=== PATIENT | female | born 1940 | race Caucasian/White ===

== ENCOUNTER → 2024-07-16 07:25 | Outpatient (REF) | payer OTHER, SELFPAY | LOC: EMG 07:25 | PROVIDERS: ATTENDING PHYSICIAN Physician Assistant Medical | DX: R20.2 Paresthesia of skin (principal) | CPT/HCPCS: 95886; 95909 ==

== ENCOUNTER 2025-02-05 18:35 | Inpatient (IN) | payer OTHER, SELFPAY ==
[2025-02-04 12:50] VITALS: BP 123/93
[2025-02-04 13:07] LABS: Hematocrit 35.4 % (37.0-47.0); Hemoglobin 11.4 g/dL (12.0-16.0); Mean Corp Hgb Conc. 32.2 g/dL (33.0-37.0); Mean Corpuscular Volume 95.7 fL (81.0-99.0); Nucleated Red Blood Cells % 0 %; Platelet Count 219 10^3/uL (130-400); Red Cell Dist. Width 12.7 % (11.5-14.5)
[2025-02-04 13:27] LABS: ALT (SGPT) 14 U/L (0-35); AST (SGOT) 20 U/L (14-36); Albumin 4.9 g/dl (3.5-5.0); Alkaline Phosphatase 78 U/L (38-126); Blood Urea Nitrogen 33 mg/dl (7-17); Calcium 11.6 mg/dl (8.4-10.2); Carbon Dioxide 23 mmol/L (22-30); Chloride 110 mmol/L (98-107); Glucose 110 mg/dl (70-99); Potassium 5.4 mmol/L (3.5-5.1); Sodium 139 mmol/L (135-145); Total Protein 7.4 g/dl (6.3-8.2); eGFR 56.25
--- NOTE | 2025-02-04 17:36 | ED.GENMED ---
History of Present Illness
<Karson Syed DO - Last Filed: 02/04/25 17:36>
General
Chief Complaint: Numbness
Time Seen by Provider: 02/04/25 16:55
<Toño Bueno PA-C - Last Filed: 02/04/25 22:50>
General
Source: patient
History of Present Illness
History of Present Illness:
84-year-old female with past medical history of hypertension and hyperlipidemia presenting to the emergency department for evaluation with her daughter after patient had been complaining of right lower extremity, right upper extremity and left thigh
complications over the last 6 months. Patient states that 6 months ago was when the right leg weakness started and has gradually gotten worse, about 1 month ago she started noticing numbness and weakness right upper extremity and states left eye
vision changes (unable to describe the visual disturbance) which started 1 month ago as well. Patient states that the symptoms will usually occur every single day, sometimes multiple times per day and usually last up to 5 minutes resolving
spontaneously. Currently patient states that her right arm feels 'abnormal' and that she has the same sensation in her right leg but notes she is still able to move these affected extremities. She denies any headaches, chest pain or shortness of
breath, abdominal pain, nausea, vomiting, fevers or infectious symptoms.
Past History
<Karson Syed DO - Last Filed: 02/04/25 17:36>
Past History
ED Past Medical History: HTN and Hypercholesterolemia
Social History
Tobacco: Non-smoker
Personal:
Living: with family
Employment: Retired
<Toño Bueno PA-C - Last Filed: 02/04/25 22:50>
Social History
Alcohol: None
Drug: None
Review of Systems
<Toño Bueno PA-C - Last Filed: 02/04/25 22:50>
Review of Systems
All Other Systems: ROS reviewed and negative except as documented in HPI and ROS
Phy Exam
<Toño Bueno PA-C - Last Filed: 02/04/25 22:50>
Physical Exam
Physical Exam:
GENERAL: Alert , in no apparent distress
HEAD: Normocephalic atraumatic
EYE: pupils equal and reactive, EOMI, no nystagmus, no gross visual disturbances
NECK: Supple
ENT: o/p clr, mmm.
CARDIAC: Regular rate and rhythm .
LUNGS: Clear breath sounds bilaterally, no acute respiratory distress, no wheezes/rales/rhonchi
ABDOMEN: Soft, without focal tenderness, no r/g, no cvat
NEUROLOGICAL: Alert and oriented, no focal neuro deficits, moving all extremities, no sensory deficits appreciated
SKIN: Warm and dry, skin intact.
MUSCULOSKELETAL: No edema, well perfused.
PSYCH: Normal and appropriate interaction.
Scores
<Toño Bueno PA-C - Last Filed: 02/04/25 22:50>
NIH Stroke Score
Level of Consciousness: 0 - Alert
LOC Questions: 0-Answers both correctly
LOC Commands: 0-Performs both correctly
Best Horizontal Gaze: 0-Normal
Visual Gentile: 0=Normal, no visual loss
Facial Palsy: 0=Normal, symmetrical
Motor - Right Arm: 0=No drift 10 seconds
Motor - Left Arm: 0=No drift 10 seconds
Motor - Right Le-No drift 5 seconds
Motor - Left Le-No drift 5 seconds
Limb Ataxia: 0-Absent
Sensation: 0-Normal
Best Language: 0-No aphasia
Dysarthria: 0-Normal
Extinction and Inattention: 0-No abnormality
NIH Total Score:: 0
Heart Failure Risk
Heart Failure Risk Score: Not Applicable
Heart Score for Chest Pain Patients
STEMI patient?: Not applicable
Withdrawal Assessment of Alcohol
Withdrawal Assessment Completed?: Not applicable
Course
<Karson Syed, DO - Last Filed: 02/04/25 17:36>
Orders/Labs/Results
Orders:
Orders
02/04/25 12:53
CT Head W/o Iv Contrast Urgent
Comment:
Reason For Exam: L arm, foot, leg, facial,eye numbness intermittent
02/04/25 12:56
Electrocardiogram (*1) Urgent
Reason for Study: Other
Other Reason for Exam: numbness
EKG- Treatment ONCE
02/04/25 12:57
Complete Blood Count/With Diff Urgent
Comprehensive Metabolic Panel Urgent
02/04/25 17:20
0.9% Sodium Chloride 1000 ml [Nss] 1,000 ml IV BOLUS
02/04/25 17:49
Aspirin 325 mg PO NOW STA
02/04/25 18:06
Ehrlichia/Anaplasma by PCR [S] Urgent
Lyme Progressive Urgent
Parathyroid Hormone [Intact PTH Includes Calcium] Urgent
Thyroid Stimulating Hormone to Reflex [TSH Reflex To Free T4] Urgent
Vitamin D, 25-OH Urgent
Blood Parasites Urgent
JULIO Source: Blood/Venous
Specimen Description:
02/04/25 18:41
Admit/Transfer Patient As Directed
Co-Sign Provider:
Level of Care: Observation services
Assign to:: Telemetry
Physician / Group: Ariela Perez
Diagnosis: right upper and lower extremity numbness
Reason for Telemetry: CVA/TIA
Date to Stop Telemetry: 02/07/25
Time to Stop Telemetry: 11:00
02/04/25 18:42
Code Status As Directed
Resuscitation Status: Full Code
02/04/25 20:42
Acetaminophen [Tylenol] 650 mg PO Q4HPRN PRN
Carvedilol [Coreg] 3.125 mg PO BID
02/04/25 20:42
Case Management Consult ONCE
Case Management Consult: Discharge Planning
Comment: stroke/tia
DIETARY IP CONSULT Routine
Reason for Consult: stroke/TIA
NEUROLOGY CONSULT Urgent
Consulting Provider: Madan Sanderson
Was physician already notified: Yes
Web Production Designer Urgent
MR Brain Without Contrast Routine
Comment:
Reason For Exam: stroke/TIA
Recent pill cam endoscopy?: No
Activity As Directed
Activity Level: As Tolerated
NIH Stroke Scale As Directed
Directions: Per protocol
Comment: every shift and with any change in condition or mental status
Neurological Checks As Directed
Frequency: q4h
Additional Instructions:: q4h x 24h upon admission to the floor, then qshift & with any change in condition
and mental status
Patient Education As Directed
Type: Stroke education packet
Comment: provide to patient and family
Pneumatic Compression Sleeves As Directed
Type: Knee high
Swallow Screening CVA/TIA ONLY As Directed
Comment: NPO until swallowing screening completed
If patient FAILS swallow screening:: NPO, Speech Therapy consult, Aspiration Precautions
If patient PASSES swallow screening, diet:: Regular
Vital Signs As Directed
Frequency: Per unit guidelines
Ot Eval And Treat Routine
Pt Eval And Treat Routine
Activity Level: As Tolerated
Speech Therapy Eval & Treat Routine
DX Deep Vein Thrombosis Video Routine
02/04/25 22:00
Amlodipine [Norvasc] 2.5 mg PO HS
Rosuvastatin Calcium [Crestor] 5 mg PO HS
02/05/25 06:00
Basic Metabolic Panel IN AM
Cardiovascular Evaluation IN AM
Complete Blood Count/No Diff IN AM
02/05/25 08:00
Aspirin Chewable [Low Strength Aspirin] 81 mg PO DAILY
02/05/25 18:00
Ezetimibe [Zetia] 10 mg PO QPM
02/07/25 11:00
DC Protocol for Telemetry ONCE
Abnormal Lab Results
02/04/25 02/04/25
12:57 18:06
RBC 3.70 L 10^6/uL
(4.20-5.40)
Hgb 11.4 L g/dL
(12.0-16.0)
Hct 35.4 L %
(37.0-47.0)
MCHC 32.2 L g/dL
(33.0-37.0)
MPV 11.3 H fL
(7.4-10.4)
Potassium 5.4 H mmol/L
(3.5-5.1)
Chloride 110 H mmol/L
(98-107)
BUN 33 H mg/dl
(7-17)
Glucose 110 H mg/dl
(70-99)
Calcium 11.6 H mg/dl 11.7 H mg/dl
(8.4-10.2) (8.4-10.2)
02/04/25 12:57
02/04/25 12:57
Vital Signs
Initial and Last Documented VS:
Initial Vital Signs
Temp Pulse Resp BP Pulse Ox
98.7 F 74 16 123/93 97
02/04/25 12:50 02/04/25 12:50 02/04/25 12:50 02/04/25 12:50 02/04/25 12:50
Last Documented Vital Signs
Temp Pulse Resp BP Pulse Ox
98.1 F 69 18 152/61 97
02/04/25 21:00 02/04/25 21:58 02/04/25 21:00 02/04/25 21:58 02/04/25 21:00
<Toño Bueno PA-C - Last Filed: 02/04/25 22:50>
Orders/Labs/Results
Orders:
Orders
02/04/25 12:53
CT Head W/o Iv Contrast Urgent
Comment:
Reason For Exam: L arm, foot, leg, facial,eye numbness intermittent
02/04/25 12:56
Electrocardiogram (*1) Urgent
Reason for Study: Other
Other Reason for Exam: numbness
EKG- Treatment ONCE
02/04/25 12:57
Complete Blood Count/With Diff Urgent
Comprehensive Metabolic Panel Urgent
02/04/25 17:20
0.9% Sodium Chloride 1000 ml [Nss] 1,000 ml IV BOLUS
02/04/25 17:49
Aspirin 325 mg PO NOW STA
02/04/25 18:06
Ehrlichia/Anaplasma by PCR [S] Urgent
Lyme Progressive Urgent
Parathyroid Hormone [Intact PTH Includes Calcium] Urgent
Thyroid Stimulating Hormone to Reflex [TSH Reflex To Free T4] Urgent
Vitamin D, 25-OH Urgent
Blood Parasites Urgent
JULIO Source: Blood/Venous
Specimen Description:
02/04/25 18:41
Admit/Transfer Patient As Directed
Co-Sign Provider:
Level of Care: Observation services
Assign to:: Telemetry
Physician / Group: Ariela Perez
Diagnosis: right upper and lower extremity numbness
Reason for Telemetry: CVA/TIA
Date to Stop Telemetry: 02/07/25
Time to Stop Telemetry: 11:00
02/04/25 18:42
Code Status As Directed
Resuscitation Status: Full Code
02/04/25 20:42
Acetaminophen [Tylenol] 650 mg PO Q4HPRN PRN
Carvedilol [Coreg] 3.125 mg PO BID
02/04/25 20:42
Case Management Consult ONCE
Case Management Consult: Discharge Planning
Comment: stroke/tia
DIETARY IP CONSULT Routine
Reason for Consult: stroke/TIA
NEUROLOGY CONSULT Urgent
Consulting Provider: Madan Sanderson
Was physician already notified: Yes
Web Production Designer Urgent
MR Brain Without Contrast Routine
Comment:
Reason For Exam: stroke/TIA
Recent pill cam endoscopy?: No
Activity As Directed
Activity Level: As Tolerated
NIH Stroke Scale As Directed
Directions: Per protocol
Comment: every shift and with any change in condition or mental status
Neurological Checks As Directed
Frequency: q4h
Additional Instructions:: q4h x 24h upon admission to the floor, then qshift & with any change in condition
and mental status
Patient Education As Directed
Type: Stroke education packet
Comment: provide to patient and family
Pneumatic Compression Sleeves As Directed
Type: Knee high
Swallow Screening CVA/TIA ONLY As Directed
Comment: NPO until swallowing screening completed
If patient FAILS swallow screening:: NPO, Speech Therapy consult, Aspiration Precautions
If patient PASSES swallow screening, diet:: Regular
Vital Signs As Directed
Frequency: Per unit guidelines
Ot Eval And Treat Routine
Pt Eval And Treat Routine
Activity Level: As Tolerated
Speech Therapy Eval & Treat Routine
DX Deep Vein Thrombosis Video Routine
02/04/25 22:00
Amlodipine [Norvasc] 2.5 mg PO HS
Rosuvastatin Calcium [Crestor] 5 mg PO HS
02/05/25 06:00
Basic Metabolic Panel IN AM
Cardiovascular Evaluation IN AM
Complete Blood Count/No Diff IN AM
02/05/25 08:00
Aspirin Chewable [Low Strength Aspirin] 81 mg PO DAILY
02/05/25 18:00
Ezetimibe [Zetia] 10 mg PO QPM
02/07/25 11:00
DC Protocol for Telemetry ONCE
Abnormal Lab Results
02/04/25 02/04/25
12:57 18:06
RBC 3.70 L 10^6/uL
(4.20-5.40)
Hgb 11.4 L g/dL
(12.0-16.0)
Hct 35.4 L %
(37.0-47.0)
MCHC 32.2 L g/dL
(33.0-37.0)
MPV 11.3 H fL
(7.4-10.4)
Potassium 5.4 H mmol/L
(3.5-5.1)
Chloride 110 H mmol/L
(98-107)
BUN 33 H mg/dl
(7-17)
Glucose 110 H mg/dl
(70-99)
Calcium 11.6 H mg/dl 11.7 H mg/dl
(8.4-10.2) (8.4-10.2)
02/04/25 12:57
02/04/25 12:57
Vital Signs
Initial and Last Documented VS:
Initial Vital Signs
Temp Pulse Resp BP Pulse Ox
98.7 F 74 16 123/93 97
02/04/25 12:50 02/04/25 12:50 02/04/25 12:50 02/04/25 12:50 02/04/25 12:50
Last Documented Vital Signs
Temp Pulse Resp BP Pulse Ox
98.1 F 69 18 152/61 97
02/04/25 21:00 02/04/25 21:58 02/04/25 21:00 02/04/25 21:58 02/04/25 21:00
<Toño Bueno PA-C - Last Filed: 02/04/25 22:50>
MDM/Problems Addressed
Differential Diagnosis Includes:
TIA/CVA
Seizure
ICH
Mass/Malignancy
GCA
Electrolyte imbalance
Hypertensive urgency
Less concern for infectious etiology given chronicity of symptoms
MDM/Problems Addressed:
84-year-old female presenting to the emergency department for evaluation of right upper extremity weakness, left eye visual disturbance, symptoms ongoing for around 6 months, gradually worsening over the last month or so. No stroke alert was called
given the chronicity of symptoms. Patient is not a TNK candidate nor a IAT candidate. Patient is hemodynamically stable and in no acute distress. No focal neurologic findings on my exam. Chemistry shows slight hyperkalemia and hypercalcemia,
hypercalcemia could be contributing to some of the patient's symptoms. Head CT was noted for moderate microvascular ischemia. Question intermittent TIA versus CVA. Will treat here with 325 of aspirin. Given the unclear etiology for patient's
symptoms will admit for further workup.
Chronic conditions affecting care: HTN
<Karson Syed DO - Last Filed: 02/04/25 17:36>
*Pulse Oximetry
SaO2: 97
Oxygen Mode of Delivery: Room air
<Toño Bueno PA-C - Last Filed: 02/04/25 22:50>
*Radiology
Radiology exam reviewed: radiology read reviewed
*Pulse Oximetry
Patient hypoxic: no
*EKG
Heart Rate: 67
Rate: normal
Rhythm: sinus
Ischemia: no ischemia
*Court Operations Clerk Interpretation
Rate: normal
Heart Rate: 70
Rhythm: sinus
*Critical Care Note
Total Time (30-74mins, 75-104mins- exclusive of procedures): Not Applicable
Data Reviewed
Review of Other/Old Records Reveals: Labs and Records
Source: patient
<Toño Bueno PA-C - Last Filed: 02/04/25 22:50>
Patient Management
Discussion with other providers: Hospitalist
Escalation/DeEscalation of care consider admission/obs:
Hospitalist team accepts for continued evaluation and treatment
ED Attending Note
<Karson Syed DO - Last Filed: 02/04/25 17:36>
ED Attending Note
Patient seen and examined by attending physician: Yes
I performed the substantive portion of visit, reviewed & personally made and approve the management plan that is documented in note by myself or SHELBY.: Yes
-
Portions of this chart may have been created with voice recognition software.� Occasional wrong word or��sound alike� substitutions may have occurred due to the inherent limitations of voice recognition software.
Discharge Plan
Departure
Patient Disposition: Admit
Date of Disposition: 02/04/25
Time of Disposition: 17:53
Presentation/result/management discussed w/ accepting MD/DO: Hospitalist
Discharge Problem:
Weakness, Hypercalcemia, Visual disturbance
Interventions
Interventions:
*Risk Screen - Suicide Last Done: 02/04/25 18:15
*General Assessment Last Done: 02/04/25 18:15
*Neglect/Abuse Screening Last Done: 02/04/25 18:15
*ED- Fall Risk Assessment Last Done: 02/04/25 18:15
*ED COVID-19 Vaccine History Last Done: 02/04/25 18:15
*Nursing Disposition Last Done: 02/04/25 20:49
ED- Neurological Assessment Last Done: 02/04/25 18:18
Discharge Date and Time
Discharge Date/Time: 02/04/25 20:50
--- NOTE | 2025-02-04 17:53 | HPS.HSE ---
Addendum entered and electronically signed by Ariela Perez MD 02/04/25 20:30:
This is an addendum to H&P written by Alice Luciano on 02/04/2025. �Patient seen and examined independent with FURNITURE RESTORER.
84-year-old female past medical history of hypertension, hyperlipidemia, prior herniated disc status post discectomy, lumbar radiculopathy, presenting with severe numbness and weakness of her right arm and right leg last night. �She has been having
the symptoms in the right leg for the past 6 months in the right arm for the past month. �Symptoms occur randomly and not associated with any back pain. �They resolve completely in between. �No headache. �She has also been having left eye cloudy
vision but denies any currently.
Vital signs unremarkable.
Labs show potassium 5.4. �Calcium 11.7.
Patient with intermittent right-sided numbness and weakness for several months left eye cloudiness. �Unclear etiology. �Chronicity does not suggest acute CVA. �Check MRI brain. �Neurology consulted.
Hyperkalemia secondary to lisinopril and spironolactone. �Hypercalcemia likely secondary to lisinopril. �Hold spironolactone and lisinopril. �Check PTH and vitamin D.
Original Note:
Family Physician
-
Family Physician: Valerie Beatty PA-C
Chief Complaint
-
numbness to RUE and RLE
History of Present Illness
Patient is a 84-year-old female with past medical history significant for hypertension and hypercholesterolemia who presented to [facility] ED for evaluation of numbness to right arm, right leg and right foot. Patient reports symptoms started last night
where she had right arm, right leg and right foot numbness that was associated with left eye cloudiness, and 'firework' like appearance. She states all night she was unable to move right arm into this morning. She states that symptoms this morning
slowly resolved slowly on their own. She denies any dizziness, fever, chills, cough, shortness of breath, chest pain, palpitations, nausea, vomiting, constipation, diarrhea or urinary symptoms.
Medical History
Past Medical History
Past Medical History: Reports Other
Additional Past Medical History:
hypertension
hypercholesterolemia
Past Surgical History: Reports Other
Additional Past Surgical History:
lumbar diskectomy
Social History
Tobacco: Former Smoker
Alcohol: None
Drug: None
Personal:
Living: With Family
Employment: Retired
Family History
Family History: Other (Father: CAD)
Allergies / Home Medications
Allergies reflects when Allergies were last updated in [employer].
Home Medications with original date entered in [employer]
Allergy/Medication List:
Allergies
Allergy/AdvReac Type Severity Reaction Status Date / Time
No Known Allergies Allergy Verified 02/04/25 12:52
Home Medications
lisinopril 20 mg tablet 20 mg PO DAILY Blood pressure 04/04/22
amlodipine 2.5 mg tablet (Norvasc) 2.5 mg PO HS 02/04/25
carvedilol 3.125 mg tablet (Coreg) 3.125 mg PO BID 02/04/25
ezetimibe 10 mg tablet (Zetia) 10 mg PO QPM 02/04/25
rosuvastatin 5 mg tablet (Crestor) 5 mg PO HS 02/04/25
spironolactone 25 mg tablet 25 mg PO BID 02/04/25
Review of Systems
-
History Source: Patient
Constitutional: Reports No Symptoms
EENT: Reports Other (cloudiness to left eye sight )
Respiratory: Reports No Symptoms
Cardiac: Reports No Symptoms
Abdomen/GI: Reports No Symptoms
: Reports No Symptoms
Musculoskeletal: Reports No Symptoms
Skin: Reports No Symptoms
Neurological: Reports Numbness (right arm, leg and foot )
Endocrine: Reports No Symptoms
Hematologic/Lymphatic: Reports No Symptoms
Psych: Reports No Symptoms
Physical Exam
Vital Signs
Vital Signs
Temp Pulse Resp BP Pulse Ox
98.7 F 74 16 123/93 97
02/04/25 12:50 02/04/25 12:50 02/04/25 12:50 02/04/25 12:50 02/04/25 17:36
Physical Exam
General: Well Developed, Well Nourished, No Apparent Distress, Comfortable and Conversant
HEENT: NormoCephalic, Moist mucous membranes and Atraumatic
Respiratory: Clear and Non Labored Respirations
Cardiac: S1/S2 and Regular Rhythm; No Murmur, Rub or Gallop
Breast: Deferred by me
GI: Soft, Non Tender, Non Distended and Normal Bowel Sounds; No Organomegaly
Rectal: Deferred by Provider
Genito-urinary: Deferred by me
Musculoskeletal: No Clubbing, No Cyanosis and No Edema
Skin: Warm and IV/Catheter Site
Neuro: Awake, AO x 3, Nonfocal/grossly intact, Cranial Nerves Intact (II-XII) and No Sensory Deficits; No Slurred Speech, Facial Droop, Tremors or Sedated
Hematologic/Lymphatic: No Lymphadenopathy
Psych: Calm and Intact Judgment/Insight
Laboratory Results
-
02/04/25 12:57
02/04/25 12:57
Laboratory Results
Total Bilirubin 0.5 mg/dl (0.2-1.3) 02/04/25 12:57
AST 20 U/L (14-36) 02/04/25 12:57
ALT 14 U/L (0-35) 02/04/25 12:57
Alkaline Phosphatase 78 U/L (38-126) 02/04/25 12:57
Data Reviewed
-
CT Scan: Report Reviewed by me (Head: No acute intracranial abnormality. Moderate microvascular ischemic disease.)
Medical Tests (Nuc Med, Echo, EKG etc): Report Reviewed by me (EKG: NORMAL SINUS RHYTHM)
Lab Data: Labs Reviewed by me (K+ 5.4, BUN 33, creat 1.0, eGFR 56.25, Ca + 11.6)
Impression/Plan
-
IMPRESSION/PLAN:
#numbness to right arm, leg and foot 2/2 CVA/TIA vs. electrolyte abnormalities
K+ 5.4, BUN 33, creat 1.0, eGFR 56.25, Ca + 11.6
EKG: NORMAL SINUS RHYTHM
Head CT: No acute intracranial abnormality.
Moderate microvascular ischemic disease.
- Admit to telemetry
- Consult Neurology
- start aspirin
- trend BMP
- MRI in AM
#hypertension
- continue amlodipine and carvedilol
- Hold lisinopril and spironolactone
#hypercholesterolemia
- continue ezetimibe and rosuvastatin
Code status: full code
DVT prophylaxis: SCDs
[2025-02-04 18:00] VITALS: BP 142/71
[2025-02-04] MEDS: NSS 1000 IV (18:11)
[2025-02-04] MEDS: ASPIRIN 325 MG PO (18:11)
[2025-02-04 18:14] VITALS: BMI 26.1
[2025-02-04 18:28] LABS: Calcium 11.7 mg/dl (8.4-10.2)
[2025-02-04 18:48] LABS: Vitamin D, 25-OH*** 48.5 ng/mL (30-80)
[2025-02-04 19:00] VITALS: BP 143/55
[2025-02-04 20:00] VITALS: BP 109/60
[2025-02-04 21:00] VITALS: BP 152/61; BMI 25.8
[2025-02-04] MEDS: NORVASC 2.5 MG PO (21:57)
[2025-02-04] MEDS: COREG 3.125 MG PO (21:58)
[2025-02-04] MEDS: CRESTOR 5 MG PO (21:58)
[2025-02-04 23:52] VITALS: BP 117/55
[2025-02-05] VITALS (8 sets, daily range): BP systolic 102–164; BP diastolic 52–71; PULSE 66–70; O2SAT 99
--- NOTE | 2025-02-05 02:49 | PTCARENOTE ---
pt received from Delfina able to make his needs known.Denies pain.OOB with 1 person assist.Plan of care continued on pt.Pt oriented to room & call joshi in reach.Stroke packet provided to pt.
--- NOTE | 2025-02-05 07:32 | W.PN.HOSP.TC ---
Today's Communication/Plan
-
For work up of possible CVA and Hyperparathyroidism
Assessment / Plan
Assessment / Plan
#Right sided numbness and weakness
-CVA/TIA
-Head CT 02/04/2025 No acute intracranial abnormality.
Moderate microvascular ischemic disease.
-Brain MRI 02/04/2025
-There are multiple foci of restricted diffusion involving the left frontal, parietal and occipital lobes consistent with acute infarctions. There is a decreased flow void involving the M1 segment the left MCA which may represent narrowing. Further
evaluation with dedicated CTA may be considered as clinically warranted.
Moderate atrophy with sequelae of moderate/severe chronic small vessel ischemic disease
-Consult Neurology
-Do CTA/Carotid USS/ Echo
-Electrolyte anomalies
K+ 5.4, BUN 33, creat 1.0,
Primary Hyperparathyroidism
-Elevated Ca 11.2, PTH 130, N Vit D 48.5
-Albumin is low 3.4
-Check Mg
#hypertension
- continue amlodipine and carvedilol
- Lisinopril and spironolactone on hold
- Monitor bp
#hypercholesterolemia
- continue ezetimibe and rosuvast
Anticipated Discharge: > 48 hours
Subjective/Interval History
-
Date of Service: February 05, 2025
An 84-year-old female who presented 2 days ago on account of numbness and weakness of her right arm and right leg 2 nights ago. She has been having the symptoms in the right leg for the past 6 months in the right arm for the past month. She doesn't
recall any precipitating factors. She also developed vision changes in the left eye in the last month described as being cloudy, and like 'firework'.
Symptoms at evaluation was resolved
Objective Data
-
Labs:
Laboratory Results
02/05/25
06:23
WBC Pending
Hgb Pending
Hct Pending
Plt Count Pending
Sodium Pending
Potassium Pending
Chloride Pending
Carbon Dioxide Pending
BUN Pending
Creatinine Pending
Glucose Pending
Calcium Pending
Vital Signs:
Vital Signs
Temp Pulse Resp BP Pulse Ox
97.8 F 62 15 109/53 97
02/05/25 03:51 02/05/25 03:51 02/05/25 03:51 02/05/25 03:51 02/05/25 03:51
I&O
02/04/25 02/05/25 02/06/25
06:59 06:59 06:59
Intake Total 0 / 0
Balance 0 / 0
Review of Systems
-
History Source: Patient
Constitutional: Reports No Symptoms
EENT: Reports No Symptoms Reported
Respiratory: Reports No Symptoms
Cardiac: Reports No Symptoms
Abdomen/GI: Reports No Symptoms
Musculoskeletal: Reports No Symptoms
Neuro: Reports Ataxia
Physical Exam
-
General: Well Developed, Well Nourished and No Apparent Distress
Respiratory: Clear to Auscultation; Negative Wheezes or Rhonchi
Cardiac: Regular Rhythm and S1/S2; Negative Murmur
GI: Soft, Nontender, Nondistended and Normal Bowel Sounds
Musculoskeletal: No Clubbing, No Cyanosis and No Edema
Neuro: Awake and Other (Motor and sensory function grossly intact. left eye palsy noted)
Data Reviewed
-
Labs: Labs Reviewed by me, Discussed with Physician and Discussed with Patient
[2025-02-05] MEDS: COREG 3.125 MG PO ×2 (07:51→19:51)
[2025-02-05] MEDS: LOW STRENGTH ASPIRIN 81 MG PO (07:51)
[2025-02-05 07:54] LABS: Hematocrit 32.6 % (37.0-47.0); Hemoglobin 10.3 g/dL (12.0-16.0); Mean Corp Hgb Conc. 31.6 g/dL (33.0-37.0); Mean Corpuscular Volume 95.0 fL (81.0-99.0); Platelet Count 191 10^3/uL (130-400); Red Cell Dist. Width 12.4 % (11.5-14.5)
[2025-02-05 08:17] LABS: Blood Urea Nitrogen 26 mg/dl (7-17); Calcium 11.0 mg/dl (8.4-10.2); Carbon Dioxide 21 mmol/L (22-30); Chloride 113 mmol/L (98-107); Estimated Creatinine Clearance 42 ml/min; Glucose 88 mg/dl (70-99); HDL Cholesterol 44 mg/dl; LDL Cholesterol, Calculated 43 mg/dl; Potassium 4.6 mmol/L (3.5-5.1); Sodium 141 mmol/L (135-145); Very Low Density Lipoprotein 25 mg/dl (0-30); eGFR > 60.00
--- NOTE | 2025-02-05 08:49 | W.PN.UPDATE ---
Update Note
Progress Note Update
Seen and examined the patient with resident. Agree with plan except for changes in my documentation
84-year-old female with numbness and weakness of the right arm and right leg. Patient had intermittent right-sided numbness and weakness for several months and left eye cloudiness.
Patient awake alert oriented
Cardiovascular system S1-S2 appreciated
Numbness of the right arm and leg
No facial droop,
Good motor strength
MRI brain-multiple foci of restricted diffusion involving left frontal, parietal, occipital lobes with acute infarctions. Decreased flow in the M1 segment of left MCA. Moderate atrophy with Seikaly of moderate to severe chronic small vessel
ischemic changes.
# Numbness of the right arm and leg with left eye cloudiness
Neurological versus other reasons
MRI of the brain with multiple areas of CVA
Check CTA of the head and neck
Check echo
Neurology evaluation
Neurochecks and NIH scale
# Hyperkalemia-improved
# Hypercalcemia- Looks like primary hyperparathyroidism. IVF.
# Hypertension-continue amlodipine and carvedilol. Hold lisinopril and spironolactone
# Hyperlipidemia-continue Zetia and statin. Increase Crestor to 10 mg
# DVT prophylaxis-Lovenox
# Full code
Spoke to daughter and updated
Part of this note was created using voice recognition system. Occasional wrong word or��sound alike� substitutions may have inadvertently occurred due to the inherent limitations of voice recognition software. If noted kindly bring it to my
attention for correction.
[2025-02-05 09:56] LABS: C-Reactive Protein < 5.00 mg/L (0.0-10.00)
[2025-02-05 10:05] LABS: Troponin I 0.024 ng/ml
[2025-02-05 10:45] LABS: Vitamin B12 286 pg/ml (239-931)
[2025-02-05 12:17] LABS: Urine Character Clear (Clear)
[2025-02-05 13:53] LABS: Lyme Antibody Screen, EIA Negative (Negative)
[2025-02-05 14:15] LABS: Urine Red Blood Cell 0-2 /HPF (0-2)
--- NOTE | 2025-02-05 15:33 | CM ---
Met with patient to obtain information for assessment. Patient stated that she lives with her spouse with her daughter nearby in a one story home with 13 steps to enter. Patient described herself as independent with all of her ADLs, personal care,
dressing and bathing. 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 Patient can drive and do all of her own shopping and get herself to her appointments. She has no DME. She has not had VN. She has never been to a SNF.
Patient has a prescription plan and uses, [facility] for all of her medications.
Patient's PCP is Caryl Beatty.
OBS letter, status reviewed, signed and on chart.
Plan: Case management will continue to follow and assist with discharge planning. Most likely no needs. Family will tranport home.
[2025-02-05] MEDS: NSS 1000 IV (16:39)
[2025-02-05] MEDS: ZETIA 10 MG PO (16:43)
[2025-02-05] MEDS: LOVENOX 40 MG SC (16:43)
--- NOTE | 2025-02-05 19:46 | CON.NEURO ---
Neuro Assessment/Plan
Assessment
Head CT imgs rev'd,
brain MRI imgs rev'd, several infarcts in L MCA territory. Report also mentioning decreased L M1 flow, proved to be spurious on CTA
CTA h/n img's and rept rev'd b/l carotid bifurcation atherosclerosis, suggestion of hemodynamically significant stenosis bulbs and proximal ICA bilaterally
HDL 44, LDL 43
stroke, suspect symptomatic carotid on the left, will check ultrasound and speak with vascular surgery tomorrow morning.
however Left MCA is also a good territory for cardio emboli
medical management for now, large vessel aterosclerosis = ASA 324 lifelong, 90 days of plavix, and high dose statin such as rosuvastatin 20 despite good lipid numbers.
Consultation
Order
Date of Consultation: 02/05/25
Requesting Provider: Gricelda
Reason for Consult: stroke
Subjective/Objective
Subjective Data
Date of Service: February 05, 2025
from h&p:
Patient is a 84-year-old female with past medical history significant for hypertension and hypercholesterolemia who presented to [facility] ED for evaluation of numbness to right arm, right leg and right foot. Patient reports symptoms started last night
where she had right arm, right leg and right foot numbness that was associated with left eye cloudiness, and 'firework' like appearance. She states all night she was unable to move right arm into this morning. She states that symptoms this morning
slowly resolved slowly on their own. She denies any dizziness, fever, chills, cough, shortness of breath, chest pain, palpitations, nausea, vomiting, constipation, diarrhea or urinary symptoms.
today her strength is much better.
Objective Data
Vital Signs
Temp Pulse Resp BP Pulse Ox
36.6 C 81 18 129/63 97
02/05/25 19:31 02/05/25 19:31 02/05/25 19:31 02/05/25 19:31 02/05/25 19:31
Lab Results
02/05/25 06:23
02/05/25 06:23
Sodium 141 mmol/L (135-145) 02/05/25 06:23
Potassium 4.6 mmol/L (3.5-5.1) 02/05/25 06:23
BUN 26 mg/dl (7-17) H 02/05/25 06:23
Glucose 88 mg/dl (70-99) 02/05/25 06:23
Calcium 11.0 mg/dl (8.4-10.2) H 02/05/25 06:23
Phosphorus 3.1 mg/dl (2.5-4.5) 02/05/25 06:23
LDL Cholesterol, Calc 43 mg/dl 02/05/25 06:23
Vitamin B12 286 pg/ml (239-931) 02/05/25 06:23
Patient Allergies
No Known Allergies Allergy (Verified 02/04/25 12:52)
Medications
-
Active Medications
Generic Name Dose Route Start Last Admin
Trade Name Freq PRN Reason Stop Dose Admin
Acetaminophen 650 mg 02/04/25 20:42
Acetaminophen 325 Mg Tablet PO 03/04/25 20:41
Q4HPRN PRN
JOY, mild pain, or temp >100.4F
Amlodipine Besylate 2.5 mg 02/04/25 22:00 02/04/25 21:57
Amlodipine 2.5 Mg Tablet PO 03/04/25 21:59 2.5 mg
HS DILLON Administration
Aspirin 325 mg 02/06/25 08:00
Aspirin 325 Mg Tablet PO 03/06/25 07:59
DAILY DILLON
Carvedilol 3.125 mg 02/04/25 20:42 02/05/25 07:51
Carvedilol 3.125 Mg Tablet PO 03/04/25 20:41 3.125 mg
BID DILLON Administration
Clopidogrel Bisulfate 75 mg 02/06/25 08:00
Clopidogrel 75 Mg Tablet PO 05/06/25 08:01
DAILY DILLON
Cyanocobalamin 1,000 mcg 02/06/25 08:00
Cyanocobalamin (Vitamin B-12) 500 Mcg Tablet PO 03/06/25 07:59
DAILY DILLON
Ezetimibe 10 mg 02/05/25 18:00 02/05/25 16:43
Ezetimibe (Zetia) 10 Mg Tablet PO 03/05/25 17:59 10 mg
QPM DILLON Administration
Enoxaparin Sodium 40 mg 02/05/25 18:00 02/05/25 16:43
Enoxaparin Sodium 40 Mg/0.4 Ml Syringe SC 03/05/25 17:59 40 mg
QPM DILLON Administration
Sodium Chloride 1,000 mls @ 100 mls/hr 02/05/25 16:30 02/05/25 16:39
Nss IV 1,000 mls
.Q10H DILLON Administration
Rosuvastatin Calcium 10 mg 02/05/25 22:00
Rosuvastatin (Crestor) 10 Mg Tablet PO 03/05/25 21:59
HS DILLON
Sodium Chloride 0 flush 02/04/25 21:00
Sodium Chloride 0.9% (Flush) Syringe IV 03/04/25 20:59
PER PROTOCOL DILLON
Home Medications
�Medication �Instructions �Recorded
lisinopril 20 mg tablet 20 mg PO DAILY Blood pressure 04/04/22
amlodipine 2.5 mg tablet (Norvasc) 2.5 mg PO HS Blood Pressure 02/04/25
carvedilol 3.125 mg tablet (Coreg) 3.125 mg PO BID Blood Pressure 02/04/25
ezetimibe 10 mg tablet (Zetia) 10 mg PO QPM High Cholesterol 02/04/25
rosuvastatin 5 mg tablet (Crestor) 5 mg PO HS High Cholesterol 02/04/25
spironolactone 25 mg tablet 25 mg PO BID Fluid 02/04/25
Retention/Swelling
[2025-02-05] MEDS: NORVASC 2.5 MG PO (19:51)
[2025-02-05] MEDS: CRESTOR 20 MG PO (20:57)
[2025-02-06] MEDS: NSS 1000 IV ×2 (03:27→18:09)
[2025-02-06 03:40] VITALS: BP 166/63
--- NOTE | 2025-02-06 06:51 | W.PN.HOSP.TC ---
Addendum entered and electronically signed by Sri Madison MD 02/06/25 14:22:
Seen and examined the patient with resident. Agree with plan except for changes in my documentation
84-year-old female with numbness and weakness of the right arm and right leg. Patient had intermittent right-sided numbness and weakness for several months and left eye cloudiness.
Symptoms better.
Patient awake alert oriented
Cardiovascular system S1-S2 appreciated
Numbness of the right arm and leg
No facial droop,
Good motor strength, no hemianopsia
MRI brain-multiple foci of restricted diffusion involving left frontal, parietal, occipital lobes with acute infarctions. Decreased flow in the M1 segment of left MCA. Moderate atrophy with Seikaly of moderate to severe chronic small vessel
ischemic changes.
CTA- Significant calcific atherosclerotic disease involving the carotid bulbs and proximal internal carotid arteries bilaterally. Suggestion of bilateral hemodynamically significant stenoses. Consider further evaluation with cerebrovascular
ultrasound to evaluate for velocity elevation.No evidence for high-grade stenosis/large vessel occlusion involving the anterior cerebral arteries or middle cerebral arteries, with particular attention to the M1 portion of the left middle cerebral
artery.No significant narrowing of the vertebral or basilar arteries.Short segment of loss of enhancement involving the P3 portion of the left posterior cerebral artery, suggesting a moderate stenosis.
# Numbness of the right arm and leg with left eye cloudiness
MRI of the brain with multiple areas of CVA
CTA of the head and neck - as above
Vascular surgery consulted. Carotid ultrasound pending
Echo results pending
Neurology evaluation appreciated
Started on aspirin, Plavix, statin increased
Neurochecks and NIH scale
# Hyperkalemia-improved
# Hypercalcemia- Looks like primary hyperparathyroidism. IVF. SPEP pending. If calcium is not coming down we will consider Cinacalcet
# Hypertension-continue amlodipine and carvedilol. Hold lisinopril and spironolactone
# Hyperlipidemia-continue Zetia and statin. Increase Crestor to 20 mg
# DVT prophylaxis-Lovenox
# Full code
D/W Neuro
Original Note:
Today's Communication/Plan
-
Discussed investigations finding and need for further workup/ USS, Echo
Assessment / Plan
Assessment / Plan
#Right sided numbness and weakness
-CVA/TIA
--Neurology consult noted with thanks
- ASA 324 lifelong, 90 days of plavix, and high dose statin such as rosuvastatin 20
-Head CT 02/04/2025 No acute intracranial abnormality.
Moderate microvascular ischemic disease.
-Brain MRI 02/04/2025
-There are multiple foci of restricted diffusion involving the left frontal, parietal and occipital lobes consistent with acute infarctions. There is a decreased flow void involving the M1 segment the left MCA which may represent narrowing. Further
evaluation with dedicated CTA may be considered as clinically warranted.
Moderate atrophy with sequelae of moderate/severe chronic small vessel ischemic disease
-HEAD CTA 02/05/2025.
Significant calcific atherosclerotic disease involving the carotid bulbs and proximal internal carotid arteries bilaterally.
Short segment of loss of enhancement involving the P3 portion of the left posterior cerebral artery, suggesting a moderate stenosis.
-For USS/ Echo
-Vascular surgery consult
#Electrolyte anomalies
-On IVF NS
Improved
K- 4.4, BUN/Cr- 18/0.9
#Primary Hyperparathyroidism
-Elevated Ca 10.9, Ionized Ca- 1.38, PTH 130, N Vit D 48.5
-Check Mg low (1.4) repeat with Mg 4g IV Over 4hrs
-Check for correction in the morning
#Hypertension
-Amlodipine 2.5 and carvedilol 3.125
- Lisinopril and spironolactone on hold
- Monitor bp
#hypercholesterolemia
-Rosuvastatin increased to 20mg by Neuro yesterday
-Continue ezetimibe
#Consult by RESIDENTIAL AIDE noted with thanks
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 MOCA 8.1 score = 17/30 (26 or higher is
normal).
Quick Aphasia Battery Form 1 = 9.79, within functional limits. No dysarthria noted.
Recommend:
1. Outpatient cognitive linguistic evaluation and treatment with an RESIDENTIAL AIDE.
OT/PT Signed off
DVT PPX- Levonox
Anticipated Discharge: > 48 hours
Subjective/Interval History
-
Date of Service: February 06, 2025
An 84-year-old female who presented 3 days ago on account of recurrent episodes of right upper and lower limb numbness and weakness and, vision changes (cloudiness/fireworks) in the left eyein the past month
Symptoms at evaluation has resolved
Objective Data
-
Labs:
Laboratory Results
02/06/25
06:31
WBC Pending
Hgb Pending
Hct Pending
Plt Count Pending
Sodium Pending
Potassium Pending
Chloride Pending
Carbon Dioxide Pending
BUN Pending
Creatinine Pending
Glucose Pending
Calcium Pending
Vital Signs:
Vital Signs
Temp Pulse Resp BP Pulse Ox
97.5 F 69 18 166/63 99
02/06/25 03:40 02/06/25 03:40 02/06/25 03:40 02/06/25 03:40 02/06/25 03:40
I&O
02/04/25 02/05/25 02/06/25
06:59 06:59 06:59
Intake Total 0 / 0
Balance 0 / 0
Review of Systems
-
History Source: Patient
Constitutional: Reports No Symptoms
EENT: Reports No Symptoms Reported
Respiratory: Reports No Symptoms
Cardiac: Reports No Symptoms
Abdomen/GI: Reports No Symptoms
Musculoskeletal: Reports No Symptoms
Neuro: Reports Other (Mild tingling in her hands)
Physical Exam
-
General: Well Developed, Well Nourished and No Apparent Distress
Respiratory: Clear to Auscultation; Negative Wheezes or Rhonchi
Cardiac: Regular Rhythm and S1/S2; Negative Murmur
GI: Soft, Nontender, Nondistended and Normal Bowel Sounds
Musculoskeletal: No Clubbing, No Cyanosis and No Edema
Neuro: Awake and Other (Motor and sensory function grossly intact. )
Data Reviewed
-
Ultrasound: Report Reviewed by me, Discussed with Physician and Discussed with Patient
MRI: Report Reviewed by me, Discussed with Physician and Discussed with Patient
Labs: Labs Reviewed by me, Discussed with Physician and Discussed with Patient
[2025-02-06 07:00] VITALS: BP 119/62
[2025-02-06 07:41] LABS: Hematocrit 32.0 % (37.0-47.0); Hemoglobin 10.5 g/dL (12.0-16.0); Mean Corp Hgb Conc. 32.8 g/dL (33.0-37.0); Mean Corpuscular Volume 94.4 fL (81.0-99.0); Platelet Count 192 10^3/uL (130-400); Red Cell Dist. Width 12.3 % (11.5-14.5)
[2025-02-06] MEDS: VITAMIN B-12 1000 MCG PO (07:54)
[2025-02-06] MEDS: ASPIRIN 325 MG PO (07:54)
[2025-02-06] MEDS: COREG 3.125 MG PO ×2 (07:54→20:11)
[2025-02-06] MEDS: PLAVIX 75 MG PO (07:55)
[2025-02-06 08:28] LABS: Blood Urea Nitrogen 18 mg/dl (7-17); Calcium 10.9 mg/dl (8.4-10.2); Carbon Dioxide 23 mmol/L (22-30); Chloride 112 mmol/L (98-107); Estimated Creatinine Clearance 42 ml/min; Glucose 85 mg/dl (70-99); Magnesium 1.4 mg/dl (1.6-2.3); Potassium 4.4 mmol/L (3.5-5.1); Sodium 141 mmol/L (135-145); eGFR > 60.00
--- NOTE | 2025-02-06 09:51 | PTOTSP ---
RECEIVING LEAD Evaluation
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 MOCA 8.1 score = 17/30 (26 or higher is
normal).
Quick Aphasia Battery Form 1 = 9.79, within functional limits. No dysarthria noted.
Recommend:
1. Outpatient cognitive linguistic evaluation and treatment with an RECEIVING LEAD.
--- NOTE | 2025-02-06 10:20 | CON.VAS ---
Addendum entered and electronically signed by Crow Penny MD 02/06/25 16:00:
Seen and examined with ANTHONY Garcia and ANTHONY Infante. Agree with findings as noted below. 84-year-old female with acute symptoms to the right upper and lower extremity with potential weakness. But she notes over the course of the last week or more so,
but over the course of the month left eye visual loss symptoms. Not clear if it was like a curtain, but she describes it more as a 'firecracker.' She also notes that the symptoms to the right leg have been occurring for 6 months on and off.
However seems worsened recently and upon admission. She does note a history of spine or back surgery.
Cardiovascular risk factors include hypertension, hypercholesterolemia, tobacco use (smokes 1-1/2 packs a day, quit at age 61).
On exam/she is awake and alert. Head is normocephalic and atraumatic. Eyes anicteric. Neck is soft electrogram is distention. Breathing is unlabored. Moves all extremities. 2+ pedal pulses palpable easily bilaterally.
CT angiogram images reviewed. Significant atherosclerotic left carotid bulb/internal carotid artery plaque that resulted in significant stenosis (greater than 73%).
Plan/ Symptomatic left carotid artery stenosis. Discussed with neurology via Driver text who feel that she may be symptomatic to the left carotid. MRI confirms left hemispheric infarct. I therefore discussed my recommendation for
revascularization. I did discuss with her however that her right leg symptoms especially given that the been going on for 6 months could indeed be secondary to spinal issues as well so I cannot guarantee. I discussed however regardless my
recommendation for revascularization based on significant left carotid stenosis and MRI findings of acute infarct. I discussed modalities of revascularization including carotid endarterectomy and TCAR. Discussed my angling towards a carotid
endarterectomy in this case. Discussed procedural technical aspects as well as anticipated outcome/recovery. Discussed risks including but not limited to bleeding, infection, cardiac complication/DC, cranial nerve injury, stroke (approximately 1
to 2% in the symptomatic setting). She understands all wishes to proceed. Plan LEFT carotid endarterectomy tomorrow.
Original Note:
Consultation
Consultation Request
Date/Time Consultation Performed: 02/06/25 1030
Requesting Provider: Sri Madison
Performing Provider: Radha Infante, ANTHONY-C for Crow Penny M.D.
Reason for Consultation: Left carotid stenosis
Medical History
-
Chief Complaint: Left eye vision changes and right-sided weakness
History of Present Illness:
This is a right handed 84-year-old female with significant past medical history for hypertension and hypercholesteremia who reported to [facility] ED on 02/05/2025 reporting acute onset of right sided numbness (including arm and leg) on 02/04/2025, but also
notes roughly 6 months of intermittent right sided weakness with accompanying left eye vision changes. Currently patient notes that she is not experiencing any more right-sided numbness and feels as though weakness is also completely resolved.
Patient endorses that roughly 4 to 6 months ago she noted intermittent right leg weakness or a 'giving out sensation.' She states she would be ambulating and her leg become weak making it difficult to do so, then roughly a month ago she began
experiencing similar intermittent right upper extremity weakness on occasion numbness would also accompany her weakness. In addition to intermittent right upper extremity weakness/numbness occurring a month ago she also began noticing left eye
vision changes that ranged from floaters or fireworks seen in her vision to amaurosis these vision changes would last anywhere from 1 to 60 minutes. She denies past history of stroke. Prior to 6 months ago she has been not noted any strokelike
symptoms. She denies accompanying dysarthria or aphasia. Currently with no complaints.
Past Medical History
Past Medical History: HTN and Hypercholesterolemia
Past Surgical History: Other (Lumbar discectomy)
Social History
Tobacco: Former Smoker
Alcohol: None
Drug: None
Personal:
Living: With Family
Allergies / Home Medications
Allergy/AdvReac Type Severity Reaction Status Date / Time
No Known Allergies Allergy Verified 02/04/25 12:52
�Medication �Instructions �Recorded �Confirmed �Type
lisinopril 20 mg tablet 20 mg PO DAILY Blood pressure 04/04/22 02/04/25 History
amlodipine 2.5 mg tablet (Norvasc) 2.5 mg PO HS Blood Pressure 02/04/25 02/04/25 History
carvedilol 3.125 mg tablet (Coreg) 3.125 mg PO BID Blood Pressure 02/04/25 02/04/25 History
ezetimibe 10 mg tablet (Zetia) 10 mg PO QPM High Cholesterol 02/04/25 02/04/25 History
rosuvastatin 5 mg tablet (Crestor) 5 mg PO HS High Cholesterol 02/04/25 02/04/25 History
spironolactone 25 mg tablet 25 mg PO BID Fluid 02/04/25 02/04/25 History
Retention/Swelling
Review of Systems
-
History Source: Patient
Constitutional: Reports No Symptoms
EENT: Reports No Symptoms
Respiratory: Reports No Symptoms
Cardiac: Reports No Symptoms
Abdomen/GI: Reports No Symptoms
: Reports No Symptoms
Musculoskeletal: Reports No Symptoms
Skin: Reports No Symptoms
Neurological: Reports Weakness (Intermittent right upper extremity and right lower extremity weakness/numbness, also notes left eye vision changes intermittently occurring over the past month)
Physical Exam
Vital Signs
Temp Pulse Resp BP Pulse Ox
97.8 F 66 12 119/64 99
02/06/25 07:00 02/06/25 07:54 02/06/25 07:00 02/06/25 07:54 02/06/25 07:00
Lab Results
02/06/25 06:31
02/06/25 06:31
Troponin I 0.024 ng/ml 02/05/25 09:28
Physical Exam
General: No Apparent Distress
HEENT: Normocephalic and Atraumatic
Respiratory: Non Labored Respirations
Cardiac: Negative JVD
GI: Soft, Non Tender and Non Distended
Musculoskeletal: No Edema
Skin: Warm and Dry
Neuro: AO x 3 and Nonfocal/Grossly Intact
Assessment / Plan
-
Assessment: 84-year-old female with MRI confirming left frontal, parietal, and upper subdural lobe acute infarcts with CTA demonstrating 74% stenosis at left carotid bulb, concern for symptomatic carotid stenosis
Plan:
Carotid ultrasound pending, likely considered symptomatic carotid stenosis and will review with patient and family if they would desire pursuing surgical intervention. Final surgical plan per attending.
Plan reviewed with on-call attending Dr. Crow Penny M.D.
[2025-02-06 11:00] VITALS: BP 143/70
[2025-02-06] MEDS: MAGNESIUM SULFATE 100 IV (11:01)
[2025-02-06 11:31] LABS: TSH 2.16 uIU/ml (0.47-4.68)
[2025-02-06 15:00] VITALS: BP 148/61
[2025-02-06] MEDS: LOVENOX 40 MG SC (17:02)
[2025-02-06] MEDS: ZETIA 10 MG PO (17:02)
[2025-02-06 19:48] VITALS: BP 146/69
[2025-02-06] MEDS: NORVASC 2.5 MG PO (20:11)
[2025-02-06] MEDS: CRESTOR 20 MG PO (20:11)
[2025-02-06 23:20] VITALS: BP 117/45
[2025-02-07] VITALS (9 sets, daily range): BP systolic 128–142; BP diastolic 52–105; BMI 26.3
[2025-02-07] MEDS: NSS 1000 IV ×3 (05:04→22:28)
[2025-02-07] MEDS: PERIDEX 0.12% ORAL RINSE 15 ML PO (06:23)
[2025-02-07] MEDS: BACTROBAN 2% OINTMENT 1 APPLIC NASAL (06:23)
--- NOTE | 2025-02-07 06:27 | PTCARENOTE ---
Report given to OR Vascular RN. CHG wipes, oral rinse, and nasal medication given. Patient in clean gown, clean sheets/pillows. Call joshi is within reach.
--- NOTE | 2025-02-07 07:01 | TRANSFER ---
Report and patient received from [facility] bed. Patient awake, alert and oriented. Patient seen by Dr. Penny and Dr. Velez at this time and a 2nd IV #20G obtained at right wrist.
--- NOTE | 2025-02-07 07:03 | W.SUR.PREOP ---
Pre-Operative Surgical Note
-
I have examined this patient prior to the performance of the scheduled procedure.
The patient's condition is unchanged from the time of the current History and
Physical and the patient is able to undergo the scheduled procedure.
--- NOTE | 2025-02-07 07:45 | W.PN.HOSP.TC ---
Today's Communication/Plan
-
Discussed with the patient and her family present, to be monitored for observation in the ICU
Assessment / Plan
Assessment / Plan
#Right sided numbness and weakness
-CVA/TIA
-Had Left carotid endarterectomy with bovine pericardial patch angioplasty done this morning 02/07/2025
-Head CT 02/04/2025 No acute intracranial abnormality.
Moderate microvascular ischemic disease.
-Brain MRI 02/04/2025
There are multiple foci of restricted diffusion involving the left frontal, parietal and occipital lobes consistent with acute infarctions. There is a decreased flow void involving the M1 segment the left MCA which may represent narrowing. Further
evaluation with dedicated CTA may be considered as clinically warranted.
Moderate atrophy with sequelae of moderate/severe chronic small vessel ischemic disease.
-HEAD CTA 02/05/2025.
Significant calcific atherosclerotic disease involving the carotid bulbs and proximal internal carotid arteries bilaterally.
Short segment of loss of enhancement involving the P3 portion of the left posterior cerebral artery, suggesting a moderate stenosis.
-Carotid ultrasound 02/06/2025
As seen on the CT angiogram of one day prior, there are significant stenoses of the bilateral internal carotid arteries. By velocity criteria, there are greater than 70% stenoses bilaterally.
-PT/OT
-NIH and Neurochecks
- ASA 324 lifelong, 90 days of plavix, and high dose statin Rosuvastatin 20
#Electrolyte anomalies
-K- 4.3, BUN/Cr- 18/0.9
#Primary Hyperparathyroidism
-Elevated Ca 10.9, Ionized Ca- 1.38, PTH 130, N Vit D 48.5
-Mg corrected now 1.8 (1.4)
-Monitor
#Anemia
-HbHt 9.5/29.5
-Chronic plus possible ABLA post op
#Hypertension
-Amlodipine 2.5 and carvedilol 3.125
- Lisinopril and spironolactone on hold
- Monitor bp
#hypercholesterolemia
-Rosuvastatin 20mg, ezetimibe 10mg
#Cognitive decline
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 MOCA 8.1 score = 17/30 (26 or higher is
normal).
DVT PPX- Levonox
Anticipated Discharge: 24 - 48 hours
Subjective/Interval History
-
Date of Service: February 07, 2025
Patient seen in the ICU lying in bed head up
Had Left carotid endarterectomy with bovine pericardial patch angioplasty done this morning
She has no complaints at this time
Objective Data
-
Labs:
Laboratory Results
02/07/25
06:00
WBC Pending
Hgb Pending
Hct Pending
Plt Count Pending
Sodium Pending
Potassium Pending
Chloride Pending
Carbon Dioxide Pending
BUN Pending
Creatinine Pending
Glucose Pending
Calcium Pending
Vital Signs:
Vital Signs
Temp Pulse Resp BP Pulse Ox
97.5 F 73 14 139/59 98
02/07/25 03:25 02/07/25 03:25 02/07/25 03:25 02/07/25 03:25 02/07/25 03:25
I&O
02/06/25 02/07/25 02/08/25
06:59 06:59 06:59
Intake Total 480 / 480
Balance 480 / 480
Review of Systems
-
History Source: Patient
Constitutional: Reports No Symptoms
EENT: Reports No Symptoms Reported
Respiratory: Reports No Symptoms
Cardiac: Reports No Symptoms
Abdomen/GI: Reports No Symptoms
Musculoskeletal: Reports No Symptoms
Physical Exam
-
General: Well Developed, Well Nourished and No Apparent Distress
Respiratory: Clear to Auscultation; Negative Wheezes or Rhonchi
Cardiac: Regular Rhythm and S1/S2; Negative Murmur
GI: Soft, Nontender, Nondistended and Normal Bowel Sounds
Musculoskeletal: No Clubbing, No Cyanosis and No Edema
Neuro: Awake and Other (Motor and sensory function grossly intact. )
Data Reviewed
-
Labs: Labs Reviewed by me, Discussed with Physician and Discussed with Patient
--- NOTE | 2025-02-07 09:24 | W.SUR.POST ---
Surgical Immediate Post Op
Note
Pre Op Diagnosis: Carotid stenosis
Post Op Diagnosis: same
Procedure Performed: Left carotid endarterectomy with bovine pericardial patch angioplasty and EEG monitoring
Primary Surgeon: Zohaib
Secondary Surgeons: Narehs GARRETT
Anesthesia: general
Estimated Blood Loss: 10cc
Fluids: see anesthesia flow sheet
Drains/Shunts: none
Specimens/Cultures: carotid plaque
Doppler/Duplex/Angio (Y/N): Y
Complications: none
Operative Findings: Woke from anesthesia moving all extremities
--- NOTE | 2025-02-07 09:30 | OR.RPT ---
Operative Report
Operative Report
PROCEDURE DATE: 02/07/2025
Preoperative diagnosis: Symptomatic critical left carotid stenosis.
Postoperative diagnosis: Same
Procedure: Left carotid endarterectomy with bovine pericardial patch angioplasty and intraoperative EEG/SSEP monitoring.
Surgeon: Zohaib
Court Worker: ANTHONY Infante, required [place] procedure including assistance with traction/countertraction, following a suture line, assistance with closure.
Complications: None
Anesthesia: General
Indications for procedure:
Symptomatic left carotid stenosis with transient right-sided weakness and left visual symptoms. MRI confirmed infarcts in the left hemisphere. Severe left carotid stenosis. With/benefits/alternatives of revascularization all fully discussed.
Patient understood and wished to proceed.
Description of procedure:
Patient was identified brought to the operating room placed on the table in supine position. After the adequate administration of anesthesia and perioperative antibiotics she was prepped and draped in the standard surgical fashion. A standard
preoperative timeout was undertaken and everybody was in agreement the plan. A standard longitudinal incision was made in the left neck that was carried through the skin subcutaneous tissue. Using the electrocautery dissection was carried through
the platysma muscle layer and then alongside the anterior medial border of the sternocleidomastoid muscle. Then using a combination of sharp dissection with the Metzenbaum scissors and electrocautery I dissected along the anterior medial border of
the internal jugular vein. The common facial vein branch was ligated between silk ties and then divided. There was an additional smaller branch more inferiorly that was also ligated between silk ties and then divided. I then deepened my
retraction. There was a moderate size lymph node that was overlying the jugular but abutting the appropriate exposure of the carotid, and therefore this was ligated at its pedicle and excised and sent for pathology.
The common carotid artery was identified and carefully dissected away from the surrounding structures take great care to avoid any injury to the structures. A vessel loop was passed around it which was double looped, but not yet tightened. Note
the vagus nerve was clearly visualized in its usual course posterior/lateral to the common carotid artery, and was protected from harm's way. I then continued my dissection up the common carotid artery to the bulb staying only on the anterior
surface of the carotid artery. Then I carried the dissection up to the internal carotid artery and then to the distal internal carotid artery. I identified where it was soft and carefully circumferentially dissected the internal carotid artery
with minimal mobilization and passed a vessel loop around it. Note the hypoglossal nerve was clearly visualized, and was preserved from harm's way. The patient was given an appropriate dose of heparin 6500 units. Next I dissected the anterior
surface of the external carotid artery and superior thyroid branches. These were then carefully circumferentially dissected with minimal mobilization and vessel loops passed around these which were double looped but not yet tightened. After 3
minutes of heparin circulation time and confirmation of optimization of the blood pressure with my anesthesiology colleagues, I clamped the distal internal carotid artery where it was soft. There was no immediate EEG or SSEP changes. After 1
minute of test clamp time there was no changes noted. Therefore at this point, the vessel loops on the external carotid artery and superior thyroid branches were tightened and the common carotid artery was clamped where it was soft proximally. An
arteriotomy was made on the common carotid artery with an 11 blade and extended using a Jama scissor. I extended the arteriotomy onto the mid to distal internal carotid artery. As noted on CT scan, there was heavy bulky near occlusive plaque at
the origin of the internal carotid artery. I difficulty getting my Jama scissors through this plaque, but was able to finally do so. A [place] was then used to endarterectomized the plaque. An endarterectomy plane was created, and the plaque was
then endarterectomized. Distally I feathered the plaque out to a nice clean endpoint in the distal internal carotid artery. Next I endarterectomized the intima back to normal intima in the common carotid artery, and the intima was cut flush there.
I then grasped the plaque and everted plaque out of the origin of the external carotid artery. The plaque was then sent off for specimen. The origin of the external carotid artery was carefully visualized and any fine debris were removed with
fine forceps. Proximal and distal endpoints were then carefully inspected. Any fine debris was removed with fine forceps, and the intima was noted to be nicely adherent proximally and distally. Next any fine debris were removed throughout the
endarterectomy bed with fine forceps. I then flushed heparinized saline. I was very satisfied. Then, I used a bovine pericardial patch to sew a patch angioplasty with a running 6-0 Prolene suture. Prior to completing and tying down my suture
line, I backbled sequentially each branch and reclamped each branch prior to unclamping the next branch. I then flushed with heparinized saline. Then I completed and tied down my suture line. We then restored flow in the common carotid and
external carotid arteries. Finally, we released flow in the internal carotid artery. There was excellent pulsatile flow in all 3 vessels. There was an excellent Doppler signal in the internal carotid artery distal to the patch with a good normal
low resistance Doppler signal. There was a good Doppler signal in the external carotid artery as well. A couple 6-0 Prolene [id number] sutures were placed along any bleeding points along the suture line. Protamine was given to reverse the
heparin. Hemostasis was completely achieved. We then irrigated and confirmed full hemostasis. We then closed in layers with 2-0 Vicryl layer to reapproximate the sternocleidomastoid muscle, followed by 3-0 Vicryl platysma muscle running layer,
followed by 4-0 Monocryl subcuticular stitch. Dermabond was applied. The patient tolerated procedure well. She awoke moving all extremities to command with tongue in the midline. All sponge, needle, instrument counts were correct at the end of
the case. The patient was transferred to the recovery room in stable condition.
[2025-02-07 10:15] LABS: Hematocrit 29.5 % (37.0-47.0); Hemoglobin 9.5 g/dL (12.0-16.0); Mean Corp Hgb Conc. 32.2 g/dL (33.0-37.0); Mean Corpuscular Volume 94.2 fL (81.0-99.0); Platelet Count 176 10^3/uL (130-400); Red Cell Dist. Width 12.4 % (11.5-14.5)
--- NOTE | 2025-02-07 10:28 | CON.INTV ---
Consultation
Consultation Request
Date/Time Consultation Requested: 02/07/2025
Date/Time Consultation Performed: 02/07/2025
Medical History
-
History of Present Illness:
Patient is a 84-year-old female who presented to the hospital on 02/04 with acute symptoms of right upper and lower extremity weakness. She was admitted to the hospital and additional workup included CT, CT and subsequently MRI. On the MRI
multiple areas of suspected CVA were noted. She was noted to have significant carotid artery stenosis. Vascular surgery and neurology surgery evaluated the patient and patient was taken for carotid endarterectomy on 02/07. Postprocedure, she was
admitted to the ICU and cosmetic consultant consultation was requested for further input.
Past Medical History
Past Medical History: Reports Other
Additional Past Medical History:
hypertension
hypercholesterolemia
Past Surgical History: Reports Other
Additional Past Surgical History:
lumbar diskectomy
Social History
Tobacco: Former Smoker. Quit more than 20 years ago
Alcohol: None
Drug: None
Personal:
Living: With Family
Employment: Retired
Family History
Family History: Other (Father: CAD)
Allergies / Home Medications
Allergies / Home Medications
Allergies
Allergy/AdvReac Type Severity Reaction Status Date / Time
No Known Allergies Allergy Verified 02/04/25 12:52
Home Medications
�Medication �Instructions �Recorded �Confirmed �Last Taken �Type
lisinopril 20 mg tablet 20 mg PO DAILY Blood pressure 04/04/22 02/04/25 02/04/25 History
amlodipine 2.5 mg tablet (Norvasc) 2.5 mg PO HS Blood Pressure 02/04/25 02/04/25 02/03/25 History
carvedilol 3.125 mg tablet (Coreg) 3.125 mg PO BID Blood Pressure 02/04/25 02/04/25 02/04/25 History
ezetimibe 10 mg tablet (Zetia) 10 mg PO QPM High Cholesterol 02/04/25 02/04/2502/03/25 History
rosuvastatin 5 mg tablet (Crestor) 5 mg PO HS High Cholesterol 02/04/25 02/04/25 02/03/25 History
spironolactone 25 mg tablet 25 mg PO BID Fluid 02/04/25 02/04/25 02/04/25 History
Retention/Swelling
Review of Systems
-
Hematologic/Lymphatic: Other (All 14 systems reviewed and negative except as stated above in the history of present illness.)
Vitals / Labs / Diagnostic Testing
Vital Signs
Temp Pulse Resp BP Pulse Ox
97.6 F 71 9 129/59 100
02/07/25 09:50 02/07/25 10:15 02/07/25 10:15 02/07/25 10:15 02/07/25 10:20
Lab Data
02/07/25 09:57
Microbiology
02/04/25 18:06 Blood/Venous Blood Parasites Smear - Final
Diagnostic Testing:
Physical Exam
-
HEENT: Normocephalic
Cardiovascular: S1/S2
Respiratory: Clear
GI: Soft and Non Distended
Neurology: Awake, Alert and Other (Right lower extremity 4 out of 5 power otherwise neuroexam is unremarkable)
Skin: Warm
General: Comfortable
Assessment
-
Patient is 84-year-old female with acute CVA involving left frontal parietal and occipital lobes, new diagnosis of carotid artery stenosis, s/p left carotid endarterectomy with bovine pericardial patch angioplasty by vascular surgery service, POD #0
Continue observation following procedure
Follow neurovascular checks per protocol
ASA, Plavix, rosuvastatin. Also on Zetia 10 mg.
Follow BP monitoring and parameters as set by primary team
Cardiac history reviewed
Monitor on telemetry
Pain control per protocol
RASS goal 0
No prior history of pulmonary disease, smoking hx includes
CXR reviewed indicating no acute disease
No prior PFTs for review
Encouraged IS
Diet advancement per protocol
Aspiration precautions
GI prophylaxis: Protonix
Cr at baseline, follow UO
Critical I/Os
Void trials
Replete electrolytes as needed
No signs/symptoms suspicious for infectious etiology at this time
Will observe off antibiotics for now
Follow temperatures/CBC
Hb and platelets postoperatively stable
DVT prophylaxis: Subcu Lovenox
Other medical diagnoses:
- Acute CVA, 01/2025
- Carotid artery disease
- Hypertension, hyperlipidemia
- Hypercalcemia, concern for primary hyperparathyroidism
- Anemia
- History of smoking, quit more than 20 years ago, no known history of pulmonary disease
Critical Care time [62] mins -- The patient is admitted for acute critical illness for the treatment of vital organ failure and/or prevention of further life-threatening conditions. Total care includes time spent in review of history, physical exam,
medications, hemodynamic/ventilator parameters, laboratory data, imaging and discussion with house staff, pharmacy, respiratory therapy, field marketing manager, and nursing
Data:
ECHO 01/2025: 1. Normal left ventricular size, wall thickness and systolic function. No regional wall motion abnormalities are seen.
2. Ejection fraction is 55-60% by visual assesment.
3. Right ventricular size and systolic function are within normal limits.
4. There is aortic sclerosis without stenosis. No aortic regurgitation.
5. There are no prior studies available for comparison.
Carotid US 01/2025: As seen on the CT angiogram of one day prior, there are significant stenoses of the bilateral internal carotid arteries. By velocity criteria, there are greater than 70% stenoses bilaterally.
MRI Brain 01/2025: There are multiple foci of restricted diffusion involving the left frontal, parietal and occipital lobes consistent with acute infarctions. There is a decreased flow void involving the M1 segment the left MCA which may represent
narrowing. Further evaluation with dedicated CTA may be considered as clinically warranted.
Moderate atrophy with sequelae of moderate/severe chronic small vessel ischemic disease.
[2025-02-07 10:42] LABS: Blood Urea Nitrogen 12 mg/dl (7-17); Calcium 9.9 mg/dl (8.4-10.2); Carbon Dioxide 18 mmol/L (22-30); Chloride 117 mmol/L (98-107); Estimated Creatinine Clearance 47 ml/min; Glucose 105 mg/dl (70-99); Potassium 4.3 mmol/L (3.5-5.1); Sodium 141 mmol/L (135-145); eGFR > 60.00
[2025-02-07] MEDS: PLAVIX PO (10:55)
[2025-02-07] MEDS: ASPIRIN PO (10:55)
[2025-02-07] MEDS: VITAMIN B-12 PO (10:55)
[2025-02-07] MEDS: COREG PO (10:55)
[2025-02-07] MEDS: NSS IV (10:56)
[2025-02-07 11:20] LABS: Glucose - Point of Care 114 mg/dl (70-99)
[2025-02-07] MEDS: CARDENE 200 IV (11:23)
[2025-02-07] MEDS: TYLENOL 650 MG PO (11:27)
--- NOTE | 2025-02-07 11:44 | PTCARENOTE ---
patient received from PACU, assessments per work list. patient c/o mild discomfort left neck, drowsy but arouses easily. equal strength bilaterally. smile symmetrical, no facial droop, tongue midline. monitor nsr. left radial arterial line with good
waveform blood return. Cardene initiated for systolic BP 170's. weaned to off per work list as Cardene dropped patient systolic below ordered parameters. denies nausea or need to void. tolerating clear liquids. medicated with Tylenol per prn order.
call joshi in reach
--- NOTE | 2025-02-07 12:12 | W.PN.UPDATE ---
Update Note
Progress Note Update
Seen and examined the patient independently. Agree with plan except for changes in my documentation
84-year-old female with numbness and weakness of the right arm and right leg. Patient had intermittent right-sided numbness and weakness for several months and left eye cloudiness.
Symptoms better.
Patient awake alert oriented
Cardiovascular system S1-S2 appreciated
Numbness of the right arm and leg
No facial droop,
Good motor strength, no hemianopsia
Left side of the neck with wound from carotid procedure
MRI brain-multiple foci of restricted diffusion involving left frontal, parietal, occipital lobes with acute infarctions. Decreased flow in the M1 segment of left MCA. Moderate atrophy with [place] of moderate to severe chronic small vessel
ischemic changes.
CTA- Significant calcific atherosclerotic disease involving the carotid bulbs and proximal internal carotid arteries bilaterally. Suggestion of bilateral hemodynamically significant stenoses. Consider further evaluation with cerebrovascular
ultrasound to evaluate for velocity elevation.No evidence for high-grade stenosis/large vessel occlusion involving the anterior cerebral arteries or middle cerebral arteries, with particular attention to the M1 portion of the left middle cerebral
artery.No significant narrowing of the vertebral or basilar arteries.Short segment of loss of enhancement involving the P3 portion of the left posterior cerebral artery, suggesting a moderate stenosis.
# Acute CVA left frontal, parietal, occipital lobes
CTA of the head and neck - as above-symptomatic critical left carotid stenosis
Vascular surgery consulted.
Status post left carotid endarterectomy with bovine pericardial patch angioplasty on 02/07/[address] Penny
Blood pressure systolic between 100 and 165 mmHg-as needed Gary goyal
Started on aspirin, Plavix, statin increased
Neurochecks and NIH scale to be continued
PT OT evaluation tomorrow
# Anemia-possible acute blood loss secondary to postoperative reasons
Check iron studies and B12
# Hyperkalemia-improved
# Hypercalcemia- Looks like primary hyperparathyroidism. IVF. Calcium has improved
# Hypertension-continue amlodipine and carvedilol. Hold lisinopril and spironolactone
# Hyperlipidemia-continue Zetia and statin. Increased Crestor to 20 mg
# DVT prophylaxis-Lovenox
# Full code
Discussed with ICU nursing
[2025-02-07 13:18] LABS: Iron 83 ug/dl (37-170); Magnesium 1.8 mg/dl (1.6-2.3)
--- NOTE | 2025-02-07 13:18 | CM ---
Operative Date today: Left carotid endarterectomy. Discharge POC: Anticipate home with no needs.
--- NOTE | 2025-02-07 13:23 | PTOTSP ---
Speech-Language Therapy Evaluation
Pt seen for bedside swallow evaluation. RN reported pt has been managing meds and PO with no difficulty. Pt with upper dentures and lower partial dentures, sparse lower dentition. Pt seen with trials of regular solids and thin liquids. Oral phase
characterized by no anterior spillage, functional mastication with good oral clearance, and timely AP transfer. Pharyngeal phase characterized by no overt s/sx of aspiration, clear VQ, and hyolaryngeal elevation upon palpation. Pt denies globus
sensation or any dysphagia.
Recommendation:
1.IDDSI 7 Regular IDDSI 0 Thin liquids
2. Meds as best tolerated
[2025-02-07 13:27] LABS: Total Iron Binding Capacity 259 ug/dl (265-497)
[2025-02-07 14:55] LABS: Ferritin 157.0 ng/ml (11.1-264.0)
[2025-02-07 15:15] LABS: Vitamin B12 497 pg/ml (239-931)
--- NOTE | 2025-02-07 16:20 | PTCARENOTE ---
patient reassessed. unable to void on bedpan. bladder scan per work list. vascular INVESTMENT RECOVERY TECHNICIAN updated by TT. orders received. straight cath per orders without issues.
[2025-02-07] MEDS: ZETIA 10 MG PO (17:19)
[2025-02-07] MEDS: LOVENOX 40 MG SC (17:19)
--- NOTE | 2025-02-07 20:00 | PTCARENOTE ---
Received pt resting in bed, AAOx3. NIH = 0 - handoff completed with dayshift. Q1h neuro checks ongoing. NSR on tele. HR 70-80s. Cardene gtt on to maintain SBP 100-165. L radial A line transduced and zeroed. + pulses. Afebrile. On RA, lungs dim. Spo2
96%. Hypoactive bowel sounds. Was straight cath'd on dayshift - will monitor bladder scans. L neck incision approximated, surgi glue intact. NSS @ 80ml/hr per orders.
[2025-02-07] MEDS: COREG 3.125 MG PO (20:14)
[2025-02-07] MEDS: NORVASC 2.5 MG PO (21:40)
[2025-02-07] MEDS: CRESTOR 20 MG PO (21:41)
[2025-02-08] VITALS (11 sets, daily range): BP systolic 122–156; BP diastolic 52–76; PULSE 75–79; O2SAT 98; BMI 26.5
--- NOTE | 2025-02-08 | PTCARENOTE ---
Able to void 250ml yellow urine on bedpan. Bathed with CHG. Cardene gtt off since 2129. SBP maintaining 100-165 off gtt. Pt. without complaints. Neuro checks WNL.
[2025-02-08 04:26] LABS: Hematocrit 29.5 % (37.0-47.0); Hemoglobin 9.8 g/dL (12.0-16.0); Mean Corp Hgb Conc. 33.2 g/dL (33.0-37.0); Mean Corpuscular Volume 91.9 fL (81.0-99.0); Platelet Count 183 10^3/uL (130-400); Red Cell Dist. Width 12.2 % (11.5-14.5)
[2025-02-08 04:36] LABS: INR 1.04; PT 14.2 Sec (11.4-14.6)
[2025-02-08 04:37] LABS: APTT 32.2 Sec (23.4-35.0)
[2025-02-08 04:50] LABS: Blood Urea Nitrogen 10 mg/dl (7-17); Calcium 10.4 mg/dl (8.4-10.2); Carbon Dioxide 19 mmol/L (22-30); Chloride 115 mmol/L (98-107); Estimated Creatinine Clearance 54 ml/min; Glucose 129 mg/dl (70-99); Potassium 4.3 mmol/L (3.5-5.1); Sodium 140 mmol/L (135-145); eGFR > 60.00
--- NOTE | 2025-02-08 05:39 | PTCARENOTE ---
Cardene gtt restarted due to SBP>165 at 0217. SBP 140s now. Voided on bedpan again without issue 900ml clear yellow urine. AM labs drawn
--- NOTE | 2025-02-08 07:08 | W.PN.INTV ---
Today's Communication / Plan
Recommendations
Doing well, stable on RA
No acute events, off pressors/cardene
Tolerating PO intake, OOB to chair
Can discharge/transfer to floors per team, we will sign off upon transfer
Assessment
-
Patient is 84-year-old female with acute CVA involving left frontal parietal and occipital lobes, new diagnosis of carotid artery stenosis, s/p left carotid endarterectomy with bovine pericardial patch angioplasty by vascular surgery service, POD #1
Carotid artery stenosis, s/p left carotid endarterectomy 02/07/25
Other medical diagnoses:
- Acute CVA, 01/2025
- Carotid artery disease
- Hypertension, hyperlipidemia
- Hypercalcemia, concern for primary hyperparathyroidism
- Anemia
- History of smoking, quit more than 20 years ago, no known history of pulmonary disease
Plan
Continue observation following procedure
Follow neurovascular checks per protocol
ASA, Plavix, rosuvastatin. Also on Zetia 10 mg.
Follow BP monitoring and parameters as set by primary team
Cardiac history reviewed--CVA/HTN/HLD
Resume home meds when able
Monitor on telemetry
Pain control per protocol
RASS goal 0
No prior history of pulmonary disease, smoking hx includes -- quit more than 20 years ago
No prior CXR for review--CT AP 2021 lung bases are clear
No prior PFTs for review
Encouraged IS
Diet advancement per protocol
Aspiration precautions
GI prophylaxis: Protonix
Cr at baseline, follow UO
Critical I/Os
Void trials
Replete electrolytes as needed
No signs/symptoms suspicious for infectious etiology at this time
Will observe off antibiotics for now
Follow temperatures/CBC
Hb and platelets postoperatively stable
DVT prophylaxis: Subcu Lovenox
Data:
ECHO 01/2025: 1. Normal left ventricular size, wall thickness and systolic function. No regional wall motion abnormalities are seen.
2. Ejection fraction is 55-60% by visual assesment.
3. Right ventricular size and systolic function are within normal limits.
4. There is aortic sclerosis without stenosis. No aortic regurgitation.
5. There are no prior studies available for comparison.
Carotid US 01/2025: As seen on the CT angiogram of one day prior, there are significant stenoses of the bilateral internal carotid arteries. By velocity criteria, there are greater than 70% stenoses bilaterally.
MRI Brain 01/2025: There are multiple foci of restricted diffusion involving the left frontal, parietal and occipital lobes consistent with acute infarctions. There is a decreased flow void involving the M1 segment the left MCA which may represent
narrowing. Further evaluation with dedicated CTA may be considered as clinically warranted.
Moderate atrophy with sequelae of moderate/severe chronic small vessel ischemic disease.
-----
Critical Care time 32 mins -- The patient is admitted for acute critical illness for the treatment of vital organ failure and/or prevention of further life-threatening conditions. Total care includes time spent in review of history, physical exam,
medications, hemodynamic/ventilator parameters, laboratory data, imaging and discussion with house staff, pharmacy, respiratory therapy, integration developer, and nursing
Subjective Dataa
Subjective Data
Date of Service:
Date of Service: February 08, 2025
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
Subjective:
Doing well, no complaints
Stable on RA
Objective Data
Data Reviewed
Vital Signs / I&O / Oxygen:
Vital Signs
Temp Pulse Resp BP Pulse Ox
97 F 84 14 130/52 97
02/08/25 03:05 02/08/25 07:00 02/08/25 07:00 02/07/25 21:40 02/08/25 07:00
Intake and Output
02/07/25 02/08/25 02/09/25
06:59 06:59 06:59
Intake Total 480 / 480 1952.5 / 1952.5
Output Total 1825 / 1825
Balance 480 / 480 128.5 / 128.5
SaO2 97
Nasal Cannula flow liters per 2
minute
Physical Exam
General: Comfortable and Other (NAD)
HEENT: Normocephalic, Anicteric and Moist Mucous Membranes
Cardiovascular: S1-S2 and Regular Rhythm
Respiratory: Clear and Non-Labored Respirations
GI: Soft, Non Distended and Non Tender
Neurology: Awake, Alert, Oriented and No Motor Deficits
Skin: Warm, Dry and Good Color
Labs/Micro/Reports
Lab Data
02/08/25 04:14
02/08/25 04:14
Laboratory Results
02/08/25
04:14
PT 14.2
INR 1.04
APTT 32.2
Microbiology
02/04/25 18:06 Blood/Venous Blood Parasites Smear - Final
[2025-02-08] MEDS: PLAVIX 75 MG PO (07:28)
[2025-02-08] MEDS: COREG 3.125 MG PO (07:28)
[2025-02-08] MEDS: VITAMIN B-12 1000 MCG PO (07:29)
[2025-02-08] MEDS: ASPIRIN 325 MG PO (07:29)
--- NOTE | 2025-02-08 07:49 | W.PN.VS ---
Addendum entered and electronically signed by Crow Penny MD 02/08/25 09:03:
Seen and examined with ANTHONY Peterson. Agree with findings as noted below. Patient without complaint. Left neck incision is clean dry and intact, no hematoma. Neurologically no focal deficits, moves all extremities well. Tongue midline. Plan/as
discussed and noted below.
Original Note:
Today's Communication / Plan
-
Patient seen and assessed with Dr. Penny
Assessment/Plan
-
Postop day 1 left CEA
Plan:
DC A-line
DC IV fluids
Out of bed/ambulate
Physical therapy
Regular diet
Home meds
Likely okay for DC later today from vascular standpoint
Subjective Data
-
Date of Service: February 08, 2025
Patient seen at bedside this a.m. with Dr. Penny. Patient offers no complaints at this time. No events overnight. Cardene weaned off this a.m.
Objective Data
-
Vital Signs
Temp Pulse Resp BP Pulse Ox
97 F 82 14 159/60 97
02/08/25 03:05 02/08/25 07:28 02/08/25 07:00 02/08/25 07:28 02/08/25 07:00
Intake and Output
02/07/25 02/08/25 02/09/25
06:59 06:59 06:59
Intake Total 480 / 480 1953.5 / 1953.5
Output Total 1825 / 1825
Balance 480 / 480 128.5 / 128.5
Intake:
Oral fluids 480 / 480 250 / 250
IV fluids (Total) 1703.5 / 1703.5
Nss 1,000 ml @ 80 mls/hr IV . 1520 / 1520
[id number] DILLON Rx#:[id number]
cardene 83.5 / 83.5
norm saline 100 / 100
Output:
Urine, Voided 1150 / 1150
Straight cath output 675 / 675
Other:
Number of approximated MODERATE 2
amounts of urine
Lab Results
02/08/25 04:14
02/08/25 04:14
Calcium 10.4 mg/dl (8.4-10.2) H 02/08/25 04:14
Phosphorus 3.0 mg/dl (2.5-4.5) 02/06/25 06:31
Magnesium 1.8 mg/dl (1.6-2.3) 02/07/25 09:57
Total Bilirubin 0.5 mg/dl (0.2-1.3) 02/04/25 12:57
AST 20 U/L (14-36) 02/04/25 12:57
ALT 14 U/L (0-35) 02/04/25 12:57
Alkaline Phosphatase 78 U/L (38-126) 02/04/25 12:57
Total Protein 7.4 g/dl (6.3-8.2) 02/04/25 12:57
Albumin 4.9 g/dl (3.5-5.0) 02/04/25 12:57
Physical Exam
-
AAO x 3
No tachypnea on room air
No tachycardia
Neck site clean, dry, soft, flat
Follows all commands
Abdomen soft
Tongue midline
--- NOTE | 2025-02-08 08:53 | PTCARENOTE ---
report recived, assessments per work list. neuro status unchanged@handoff. vascular in, orders received. IVF capped. arterial line removed without issue. ambulated to bathroom with assist of one. weak but steady gait. voiding adequate amounts nany
urine. assisted to chair. call joshi in reach
[2025-02-08] MEDS: ZESTRIL 10 MG PO (10:10)
--- NOTE | 2025-02-08 10:30 | PTOTSP ---
The patient is ambulating and performing stairs independently, no strength or coordination deficits noted. No PT needs identified at this time, will sign off.
--- NOTE | 2025-02-08 11:53 | W.PN.HOSP.TC ---
Today's Communication/Plan
-
Patient to be discharged homeo n medications
To follow up out patient clinics with with primary care for hypertension recent CVA hyperparathyroidism, mild cognitive impairment,
Follow-up with manager of project management for eye symptoms
Follow-up with vascular surgery post op
Assessment / Plan
Assessment / Plan
#Right sided numbness and weakness-CVA/TIA
-Presented with right upper and lower extremity weakness, numbness, left eye vision changes
-Symptomatic critical left carotid stenosis
-Had Left carotid endarterectomy with bovine pericardial patch angioplasty done yesterday 02/07/2025
-Cleared by the Vascular surgeon
-Discharge home, early ambulation
- ASA 324 lifelong, 90 days of plavix, and high dose statin Rosuvastatin 20
-Lisinopril 10mg, Coreg 3.125mg bid. Amlodipine 2.5mg
- Hold spironolactone. Restart lisinopril at 10 mg daily
- For discharge home today cleared by vascular surgeon and Neurologist
-Follow up with manager of project management for eye symptoms
#Electrolyte anomalies
-K- 4.3, BUN/Cr- 10/0.7
- Improved
#Primary Hyperparathyroidism
-Elevated Ca 10.4, PTH 130, N Vit D 48.5
-Mg corrected now 1.8 (1.4)
-Patient is currently Asymptomatic
-Follow up with PCP for monitoring of Parathyroid gland
#Multifactorial, Anemia
-HbHt 9.8/29.5
-Chronic plus possible ABLA post op
-Follow up with PCP for anemia work with PCP
#Essential Hypertension
-Amlodipine 2.5 and carvedilol 3.125
- Lisinopril reduced to 10mg
-Spironolactone on hold
- Monitor bp at home and go with log to Primary care
#hypercholesterolemia
-Rosuvastatin 20mg, ezetimibe 10mg
#Cognitive decline
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
MOCA 8.1 score = 17/30 (26 or higher is normal).
DVT PPX- Levonox
Dispo- Home with PT
Anticipated Discharge: Today
Subjective/Interval History
-
Date of Service: February 08, 2025
Patient seen
No new complains
Ambulating well post op with minimal pain
Self voiding
Objective Data
-
Labs:
Laboratory Results
02/08/25
04:14
WBC 10.3
Hgb 9.8 L
Hct 29.5 L
Plt Count 183
PT 14.2
INR 1.04
APTT 32.2
Sodium 140
Potassium 4.3
Chloride 115 H
Carbon Dioxide 19 L
BUN 10
Creatinine 0.7
Glucose 129 H
Calcium 10.4 H
Vital Signs:
Vital Signs
Temp Pulse Resp BP Pulse Ox
97.5 F 66 24 143/69 98
02/08/25 07:45 02/08/25 10:10 02/08/25 09:30 02/08/25 10:10 02/08/25 08:30
I&O
02/07/25 02/08/25 02/09/25
06:59 06:59 06:59
Intake Total 480 / 480 1953.5 / 3.5 520 / 520
Output Total 1825 / 1825 700 / 700
Balance 480 / 480 128.5 / 208.5 -180 / -180
Review of Systems
-
History Source: Patient
Constitutional: Reports No Symptoms
EENT: Reports No Symptoms Reported
Respiratory: Reports No Symptoms
Cardiac: Reports No Symptoms
Abdomen/GI: Reports No Symptoms
Musculoskeletal: Reports No Symptoms
Physical Exam
-
General: Well Developed, Well Nourished and No Apparent Distress
HEENT: Other (Left incisional scar noted clean and dry)
Respiratory: Clear to Auscultation; Negative Wheezes or Rhonchi
Cardiac: Regular Rhythm and S1/S2; Negative Murmur
GI: Soft, Nontender, Nondistended and Normal Bowel Sounds
Musculoskeletal: No Clubbing, No Cyanosis and No Edema
Neuro: Awake and Other (Motor and sensory function grossly intact. )
Psych: Calm
Data Reviewed
-
Ultrasound: Report Reviewed by me, Discussed with Physician and Discussed with Patient
Labs: Labs Reviewed by me, Discussed with Physician and Discussed with Patient
--- NOTE | 2025-02-08 11:59 | PTCARENOTE ---
reassessed. no changes
--- NOTE | 2025-02-08 12:48 | W.PN.UPDATE ---
Update Note
Progress Note Update
Seen and examined the patient independently. Agree with plan except for changes in my documentation
84-year-old female with numbness and weakness of the right arm and right leg. Patient had intermittent right-sided numbness and weakness for several months and left eye cloudiness.
Symptoms better.
Patient awake alert oriented
Cardiovascular system S1-S2 appreciated
Good motor strength, no hemianopsia, tongue midline
Left side of the neck with wound from carotid procedure
MRI brain-multiple foci of restricted diffusion involving left frontal, parietal, occipital lobes with acute infarctions. Decreased flow in the M1 segment of left MCA. Moderate atrophy with [place] of moderate to severe chronic small vessel
ischemic changes.
CTA- Significant calcific atherosclerotic disease involving the carotid bulbs and proximal internal carotid arteries bilaterally. Suggestion of bilateral hemodynamically significant stenoses. Consider further evaluation with cerebrovascular
ultrasound to evaluate for velocity elevation.No evidence for high-grade stenosis/large vessel occlusion involving the anterior cerebral arteries or middle cerebral arteries, with particular attention to the M1 portion of the left middle cerebral
artery.No significant narrowing of the vertebral or basilar arteries.Short segment of loss of enhancement involving the P3 portion of the left posterior cerebral artery, suggesting a moderate stenosis.
# Acute CVA left frontal, parietal, occipital lobes
CTA of the head and neck - as above-symptomatic critical left carotid stenosis
Vascular surgery consulted.
Status post left carotid endarterectomy with bovine pericardial patch angioplasty on 02/07/[address] Penny
Blood pressure mostly stable. Lisinopril started
Started on aspirin, Plavix, statin increased
Aspirin 325 mg for the rest of her life per discussion with neurology
Plavix for 90 days
Neurochecks and NIH scale to be continued
PT OT evaluation
Noted outpatient PT OT
# Anemia-possible acute blood loss secondary to postoperative reasons
Outpatient workup for anemia
# Hyperkalemia-improved
# Hypercalcemia- Looks like primary hyperparathyroidism. Calcium has improved. Can start Cinacalcet as outpatient if needed
# Hypertension-continue amlodipine and carvedilol. Hold spironolactone. Restart lisinopril at 10 mg daily
# Hyperlipidemia-continue Zetia and statin. Increased Crestor to 20 mg
# DVT prophylaxis-Lovenox
# Full code
Discussed with ICU nursing
Called patient's daughter went to message and mailbox full
Spoke to spouse updated regarding all the follow-up needs including follow-up with vascular, PCP, safety deposit supervisor. Med changes discussed
More than 30 minutes spent in discharge including
Final examination of the patient
Summarizing hospital stay
Instructions for continuing care to all relevant caregivers
Preparation of discharge records, prescriptions, and referral forms
Total time spent (in minutes): more than 30 min
--- NOTE | 2025-02-08 13:06 | CM ---
Patient has been medically cleared for discharge to home with [facility] services. No PT needs. OT recommends home OT vs outpatient on 02/08/25. Requested HH to also evaluate needs for OT. Family will transport home.
[2025-02-08 13:15] LABS: Albumin 3.94 g/dL (3.75-5.01); SPEP IFE Reflex IFE Done; Total Protein-Electrophoresis 6.3 g/dL (6.3-8.2)
--- NOTE | 2025-02-08 22:47 | W.DCSUMMARY ---
Discharge Summary
Discharge Data
Date of Admission: 02/05/25
Date of Discharge: 02/08/25
-
Pending Results: Yes (SPEP, UPEP)
Hospital Course
Discharging Physician : Sinai Tijerina MD, Sri Madison
Disposition : Home
Primary care physician : Valerie Beatty
Principal Discharge diagnosis :
Cerebrovascular incident
Primary Hyperparathyroidism
Anemia
Hypertension
Chronic Discharge diagnosis :
Hyperlipidemia,
Prior herniated disc status post discectomy,
Lumbar radiculopathy
Hospital course
An 84-year-old female who presented to [facility] ED 02/05/2025 on account of sudden numbness and weakness of her right upper and lower extremities and vision impairment the night prior to presentation. She has been had recurrence of these symptoms in
the right leg for the past 6 months in the right arm for the past month. She didn't recall any precipitating factors. She also developed vision changes in the left eye in the last month described as being cloudy, and like 'firework'
Patient presentation today shows no obvious distress neurological exam was benign NIH score 0.
She was seen in consultation by the neurologist and vascular surgeon
Head CT done showed no acute intracranial abnormality with moderate microvascular ischemic disease brain MRI showed several infarcts of the left a left MCA territory. CTA revealed bilateral calcified atherosclerosis involving the carotid bulbs and
proximal canal internal carotid arteries of which the stenosis was more than 70% per Carotid Doppler ultrasound.
She had Left carotid endarterectomy with bovine pericardial patch angioplasty and intraoperative EEG/SSEP monitoring done on 02/07/2025 for a symptomatic critical left carotid stenosis. Procedure was well-tolerated.
She was recommended to receive ASA 324 lifelong, 90 days of plavix, and high dose statin Rosuvastatin 20mg.
Her blood pressure was managed with Coreg 3.125 mg twice daily amlodipine 2.5 mg daily lisinopril was temporarily held and Aldactone was discontinued on account of hyperkalemia found on admission she is to follow-up with vascular surgeon and
neurosurgeon as outpatient.
She was also found to have hypercalcemia, current elevated PTH vitamin D was normal was diagnosed with primary hyperparathyroidism as she has a follow-up with PCP for possible treatment if symptomatic/worsening.
She was evaluated for PT/ OT/ ST mild cognitive decline was found and she has a follow-up with speech-language pathology report assessment and treatment.
HbHt 9.8/29.5, Anemia is thought to be multifactorial. She is to follow-up with the PCP for further evaluation.
Additional follow-up with immersion metalcleaner for evaluation of other possible causes of eye symptoms.
Important imaging findings :
CT Head W/o Iv Contrast 02/04/2025
No acute intracranial abnormality.
Moderate microvascular ischemic disease.
CT Head & Neck Angio W/wo IV 02/05/2025
No evidence for acute intracranial abnormality on unenhanced portion of the examination.
Significant calcific atherosclerotic disease involving the carotid bulbs and proximal internal carotid arteries bilaterally. Suggestion of bilateral hemodynamically significant stenoses. Consider further evaluation with cerebrovascular ultrasound to
evaluate for velocity elevation.
No evidence for high-grade stenosis/large vessel occlusion involving the anterior cerebral arteries or middle cerebral arteries, with particular attention to the M1 portion of the left middle cerebral artery.
No significant narrowing of the vertebral or basilar arteries.
Short segment of loss of enhancement involving the P3 portion of the left posterior cerebral artery, suggesting a moderate stenosis.
Percent stenosis is calculated using NASCET criteria.
MR Brain Without Contrast 02/05/2025
There are multiple foci of restricted diffusion involving the left frontal, parietal and occipital lobes consistent with acute infarctions. There is a decreased flow void involving the M1 segment the left MCA which may represent narrowing. Further
evaluation with dedicated CTA may be considered as clinically warranted.
Moderate atrophy with sequelae of moderate/severe chronic small vessel ischemic disease.
US Cerebrovascular: Carotid ultrasound. 02/06/2025
As seen on the CT angiogram of one day prior, there are significant stenoses of the bilateral internal carotid arteries. By velocity criteria, there are greater than 70% stenoses bilaterally.
Diagnostic criteria as initially proposed by the Society of Radiologists in Ultrasound Consensus Conference, with modifications recommended by the Intersocietal Accreditation Commission March 2021.
TRANSTHORACIC ECHOCARDIOGRAM 02/06/2025
1. Normal left ventricular size, wall thickness and systolic function. No regional wall motion abnormalities are seen.
2. Ejection fraction is 55-60% by visual assesment.
3. Right ventricular size and systolic function are within normal limits.
4. There is aortic sclerosis without stenosis. No aortic regurgitation.
5. There are no prior studies available for comparison
.
Procedure findings :
Left carotid endarterectomy with bovine pericardial patch angioplasty and intraoperative EEG/SSEP monitoring done on
02/07/2025 for Symptomatic critical left carotid stenosis.
Discharge Plan
-
Patient Disposition: Home (Routine Discharge)
Discharge Diagnosis/Procedures: Cerebrovascular incident
Primary Hyperparathyroidism
Anemia
Hypertension
Condition: Fair
Diet: Low Cholesterol and 2 Gram Sodium
Activity: As tolerated and No strenuous activity
Driving Restrictions: Not until seen by your Dr
Bathing Restrictions: OK to Shower
Other Services: VN
Activity Restrictions/Additional Instructions:
You need to follow-up with your primary physician for workup of anemia and elevated calcium.
You may need to get started on a medicine if the calcium levels stay high.
Do not take any calcium supplements
Results of SPEP and UPEP pending at discharge. Follow-up with primary physician for results.
Check your blood pressure at home and call your primary physician if systolic blood pressures more than 150 mm hG
Additional prescriptions for Plavix to be obtained from primary physician
Stand Alone Forms: Vascular Surg Discharge Instr
Referrals:
[facility] [Other] - in one week
Referral Note: Follow up with your immersion metalcleaner in a weeks time for your left eye symptom
Valerie Beatty PA-C [Family Provider] - in less than 1 week
Referral Note: Follow up with your primary care provider in less than 1 week.
Go with your daily blood pressure log.
You are also to have your Primary hyperparathoiridsm evaluated
Mary Silvestre CRNP [Specified Professional Personl, Vascular Surgery] - 02/22/25 11:00 am
Additional Discharge Medication Instructions: Take clopidogrel 75mg 1 tablet by mouth for 3 months to be completed on May 07, 2025
Take Aspirin 325mg 1 tablet by mouth daily
Take Vitamin B 12 tablet daily
Take Rosuvastatin 20mg by mouth at night daily
Take Amlodipine 2.5mg by mouth daily
Take Coreg 3.125mg by mouth two times daily
Do a daily blood pressure measurement, log it and take it with you to your primary care in less than a week
You are to follow up with a speech pathologist and immersion metalcleaner
Prescriptions:
New
aspirin 325 mg Tablet
325 mg PO DAILY Qty: 30 0RF
clopidogrel 75 mg Tablet
75 mg PO DAILY Qty: 30 2RF
rosuvastatin 20 mg Tablet
20 mg PO HS Qty: 30 0RF
cyanocobalamin (vitamin B-12) [Vitamin B-12] 500 mcg Tablet
1,000 mcg PO DAILY Qty: 30 0RF
acetaminophen [Tylenol Extra Strength] 500 mg tablet
500 mg PO Q6H PRN (Reason: pain) Qty: 30 0RF
Continued
amlodipine [Norvasc] 2.5 mg Tablet
2.5 mg PO HS Qty: 30 0RF
carvedilol [Coreg] 3.125 mg Tablet
3.125 mg PO BID Qty: 60 0RF
ezetimibe [Zetia] 10 mg Tablet
10 mg PO QPM Qty: 30 0RF
Changed
lisinopril 20 mg tablet
10 mg PO DAILY Qty: 15 0RF
Discontinued
spironolactone 25 mg tablet
25 mg PO BID
rosuvastatin [Crestor] 5 mg Tablet
5 mg PO HS
Discharge Orders:
Discharge Patient (As Directed); Ordered 02/08/25
Ordered By: Sri Madison
Discharge Date and Time
Discharge Date/Time: 02/08/25 15:00
Print Language: VINCENTIAN
== END 2025-02-08 15:00 | disposition home health service (06) | DRG 38 ==
LOC: ICU 18:35
PROVIDERS: Emergency Medicine; Nurse Practitioner Acute Care; Nurse Practitioner Family; Physician Assistant Medical; ADMITTING PHYSICIAN Hospitalist; ATTENDING PHYSICIAN Hospitalist; CONSULT PHYSICIAN Internal Medicine; CONSULT PHYSICIAN Psychiatry & Neurology Clinical Neurophysiology; CONSULT PHYSICIAN Surgery Vascular Surgery; EMERGENCY PHYSICIAN Emergency Medicine; FAMILY PHYSICIAN Physician Assistant Medical
PROC: 03UL0KZ Supplement Left Internal Carotid Artery with Nonautologous Tissue Substitute, Open Approach (ICD-10-PCS; 2025-02-07)
PROC: 03CL0ZZ Extirpation of Matter from Left Internal Carotid Artery, Open Approach (ICD-10-PCS; 2025-02-07)
DX: I63.232 Cerebral infarction due to unspecified occlusion or stenosis of left carotid arteries (principal); D62 Acute posthemorrhagic anemia; I10 Essential (primary) hypertension; E78.00 Pure hypercholesterolemia, unspecified; H53.9 Unspecified visual disturbance; I70.0 Atherosclerosis of aorta; E87.5 Hyperkalemia; E21.0 Primary hyperparathyroidism; M54.16 Radiculopathy, lumbar region; T46.4X5A Adverse effect of angiotensin-converting-enzyme inhibitors, initial encounter; Y92.9 Unspecified place or not applicable; Z87.891 Personal history of nicotine dependence; Z82.49 Family history of ischemic heart disease and other diseases of the circulatory system
CPT/HCPCS: 35301; 70450; 70496; 70498; 70551; 80048; 80053; 80061; 81003; 81015; 82306; 82330; 82607; 82728; 82784; 82962; 83540; 83550; 83735; 83970; 84100; 84155; 84165; 84443; 84484; 85025; 85027; 85610; 85652; 85730; 86140; 86334; 86618; 86850; 86900; 86901; 87015; 87207; 87468; 87484; 87798; 88304; 88305; 88311; 92523; 92610; 93005; 93306; 93880; 95938; 95941; 95955; 96360; 97129; 97162; 97164; 97166; 97168; 99285; Q9967

== ENCOUNTER → 2025-03-11 08:18 | Outpatient (REF) | payer OTHER, SELFPAY | LOC: RAD 08:18 | PROVIDERS: ATTENDING PHYSICIAN Registered Nurse; FAMILY PHYSICIAN Physician Assistant Medical | DX: I65.22 Occlusion and stenosis of left carotid artery (principal) | CPT/HCPCS: 93880 ==

== ENCOUNTER → 2025-06-04 10:37 | Outpatient (REF) | payer OTHER, SELFPAY | LOC: RAD 10:37 | PROVIDERS: ATTENDING PHYSICIAN Physician Assistant Medical | DX: E83.52 Hypercalcemia (principal); E55.9 Vitamin D deficiency, unspecified; Z13.820 Encounter for screening for osteoporosis | CPT/HCPCS: 77080 ==